=== PATIENT | male | born 1960 | race Caucasian/White ===

== ENCOUNTER 2020-11-09 02:36 | Inpatient (IN) | payer BC, SELFPAY ==
[~2020-11-09] VITALS: Ht 182.9 cm; Wt 98.9 kg
[2020-11-09 03:00] VITALS: BP_SYST 125
[2020-11-09] MEDS ORDERED: PIPERACILLIN/TAZO 3.375 GM in NS 50 ML IV ONE (03:15)
[2020-11-09] MEDS ORDERED: NACL 0.9% 1,000 ML IV ONE (03:15)
[2020-11-09] MEDS ORDERED: ACETAMINOPHEN 500 MG TABLET PO ONE (03:15)
[2020-11-09] MEDS ORDERED: VANCOMYCIN HCL 1,000 MG in NS 250 ML IV ONE ×2 (03:15→04:15)
[2020-11-09] MEDS ORDERED: DIPH-TET-PERTUS Vaccine 0.5 ML VIAL (ADACEL) I.M. ONE (03:15)
[2020-11-09] MEDS ORDERED: VANCOMYCIN HCL 1000 MG/VIAL IV ONE (03:19)
[2020-11-09] MEDS ORDERED: PIPERACILLIN/TAZOBACTAM 3.375 GM/VIAL (ZOSYN) IV ONE (03:22)
[2020-11-09 03:26] LABS: HEMATOCRIT 36.3 % (36-54); HEMOGLOBIN 12.7 g/dL (14.0-18.0); MEAN CORPUSCULAR HEMOGLOBIN 30 pg (27-31); MEAN CORPUSCULAR HGB CONC 35 % (32-36); MEAN CORPUSCULAR VOLUME 84 fL (79.0-98.0); PLATELET COUNT (AUTO) 283 K/uL (130-430); RED CELL DISTRIBUTION WIDTH 12.6 % (9.0-15.0); WHITE BLOOD COUNT (AUTO) 26.3 K/uL (4.8-10.8)
[2020-11-09 03:38] LABS: ANION GAP 10 (5-15); CALCIUM 8.3 mg/dL (8.4-11.0); CHLORIDE 88 mmol/L (98-107); CREATININE 1.25 mg/dL (0.55-1.30); GLUCOSE 370 mg/dL (70-99); POTASSIUM 3.7 mmol/L (3.5-5.1); SODIUM SERUM 124 mmol/L (136-145); UREA NITROGEN, BLOOD 14 mg/dL (8-21)
[2020-11-09 03:39] LABS: GFR AFRICAN AMERICAN 76 mL/min (>90)
[2020-11-09 03:44] LABS: ALANINE AMINOTRANSFERASE 14 U/L (12-78); ALBUMIN 2.6 g/dL (3.4-4.8); ASPARTATE AMINOTRANSFERASE 16 U/L (10-37); TOTAL BILIRUBIN 1.3 mg/dL (0.0-1.0)
[2020-11-09 03:49] LABS: ATYPICAL LYMPHOCYTES % 1 % (0-0); BAND % (MANUAL) 0 % (0-6); BASOPHILS % (MANUAL) 0 % (0-2); EOSINOPHILS % (MANUAL) 0 % (0-7); LYMPHOCYTES % (MANUAL) 3 % (20-46); MONOCYTES % (MANUAL) 6 % (0-11)
[2020-11-09 03:51] LABS: C-REACTIVE PROTEIN QUANT 37.6 mg/dL (0-0.5)
[2020-11-09 03:55] LABS: BILIRUBIN,URINE NEGATIVE (NEGATIVE); CLARITY/URINE CLEAR (CLEAR); COLOR,URINE YELLOW (YELLOW); GLUCOSE,URINE 3+ (NEGATIVE); KETONES,URINE 2+ (NEGATIVE); LEUKOCYTE ESTERASE ,URINE NEGATIVE (NEGATIVE); NITRITE, URINE NEGATIVE (NEGATIVE); PH,URINE 5.5 (5.0-8.0); PROTEIN URINE TRACE (NEGATIVE)
[2020-11-09 03:57] LABS: BLOOD, URINE TRACE (NEGATIVE)
[2020-11-09] MEDS ORDERED: INSULIN REGULAR, HUMAN 10 UNITS/0.1 ML INJ ONE (03:57)
[2020-11-09 03:58] LABS: BACTERIA,URINE FEW /HPF (None Seen); WBC,URINE 0-3 /HPF (0-3)
[2020-11-09] MEDS ORDERED: HYDROcodone/ACETAMIN 5-325 MG TAB (NORCO/ VICODIN) PO PRN (04:00)
[2020-11-09] MEDS ORDERED: INSULIN REGULAR, HUMAN 10 UNITS/0.1 ML INJ IVP ONE (04:00)
[2020-11-09 04:16] LABS: ACETONE, SERUM SMALL (NEGATIVE)
[2020-11-09 04:17] LABS: ERYTHROCYTE SEDIMENTATION RATE 86 MM/HR (0-15)
[2020-11-09] MEDS ORDERED: METF-509 PO (04:18)
[2020-11-09 04:43] VITALS: BP_SYST 118
[2020-11-09] MEDS ORDERED: PIPERACILLIN/TAZO 3.375/DEX-IS 50 ML IV SCH ×2 (06:00→09:00)
[2020-11-09] MEDS: INSULIN REGULAR, HUMAN 100 UNITS/ML, 10 ML VIAL (humuLIN R) SUBCUT PRN ×4 (06:36→21:53)
[2020-11-09] MEDS: 0.45% NACL 1,000 ML IV SCH (07:03)
[2020-11-09 08:00] VITALS: BP_SYST 121
[2020-11-09] MEDS: PIPERACILLIN/TAZOBACTAM 3.375 GM/ D5W 50 ML IV SCH ×4 (12:00→17:37)
[2020-11-09 13:14] VITALS: BP_SYST 119
[2020-11-09] MEDS: VANCOMYCIN HCL 1,000 MG in NS 250 ML IV SCH (15:26)
[2020-11-09] MEDS: metFORMIN HCL 500 MG TABLET PO SCH (17:37)
[2020-11-09 20:30] VITALS: BP_SYST 126
[2020-11-09] MEDS: ENOXAPARIN SODIUM 40 MG/0.4 ML SYRINGE SUBCUT SCH (21:52)
[2020-11-09] MEDS: ACETAMINOPHEN 325 MG TABLET PO PRN (22:06)
[2020-11-09] MEDS ORDERED: MORPHINE 2 MG/ML INJ. SYRINGE IVP ONE (23:15)
[2020-11-10] MEDS: PIPERACILLIN/TAZOBACTAM 3.375 GM/ D5W 50 ML IV SCH ×8 (00:30→21:14)
[2020-11-10 01:51] VITALS: BP_SYST 122
[2020-11-10] MEDS: VANCOMYCIN HCL 1,000 MG in NS 250 ML IV SCH ×2 (04:08→16:35)
[2020-11-10] MEDS: INSULIN REGULAR, HUMAN 100 UNITS/ML, 10 ML VIAL (humuLIN R) SUBCUT PRN ×3 (06:38→18:29)
[2020-11-10 07:36] LABS: BASOPHILS # (AUTO) 0.1 K/uL (0.0-0.2); BASOPHILS % (AUTO) 0.3 % (0.0-2.0); HEMATOCRIT 34.3 % (36-54); HEMOGLOBIN 11.7 g/dL (14.0-18.0); LYMPHOCYTES % (AUTO) 3.4 % (20.5-51.5); MEAN CORPUSCULAR HEMOGLOBIN 29 pg (27-31); MEAN CORPUSCULAR HGB CONC 34 % (32-36); MEAN CORPUSCULAR VOLUME 85 fL (79.0-98.0); MONOCYTES # (AUTO) 2.6 K/uL (0.0-1.0); MONOCYTES % (AUTO) 9.3 % (1.7-9.3); NEUTROPHILS # (AUTO) 24.8 K/uL (1.8-7.7); PLATELET COUNT (AUTO) 273 K/uL (130-430); RED BLOOD CELL COUNT(AUTO) 4.03 MIL/uL (4.2-6.2); WHITE BLOOD COUNT (AUTO) 28.5 K/uL (4.8-10.8)
[2020-11-10 07:56] LABS: CALCIUM 8.1 mg/dL (8.4-11.0); CREATININE 1.3 mg/dL (0.55-1.30); PHOSPHORUS 2.3 mg/dL (2.7-4.5); POTASSIUM 3.2 mmol/L (3.5-5.1)
[2020-11-10 08:00] VITALS: BP_SYST 96
[2020-11-10] MEDS: metFORMIN HCL 500 MG TABLET PO SCH ×2 (08:00→18:18)
[2020-11-10] MEDS: 0.45% NACL 1,000 ML IV SCH ×2 (09:39→21:15)
[2020-11-10 12:10] VITALS: BP_SYST 122
[2020-11-10] MEDS ORDERED: POTASSIUM CHLORIDE 20 MEQ TAB.PRT.SR PO ONE (16:00)
[2020-11-10 16:10] VITALS: BP_SYST 119
[2020-11-10] MEDS: MICAFUNGIN SODIUM 100 MG in NS 100 ML IV SCH (16:35)
[2020-11-10 20:00] VITALS: BP_SYST 105
[2020-11-10] MEDS: INSULIN GLARGINE 100 UNITS/ML 10 ML VIAL SUBCUT SCH (21:14)
[2020-11-10] MEDS: ENOXAPARIN SODIUM 40 MG/0.4 ML SYRINGE SUBCUT SCH (21:14)
[2020-11-11 00:10] VITALS: BP_SYST 97
[2020-11-11] MEDS: PIPERACILLIN/TAZOBACTAM 3.375 GM/ D5W 50 ML IV SCH ×4 (00:11→07:32)
[2020-11-11] MEDS: ACETAMINOPHEN 325 MG TABLET PO PRN (00:12)
[2020-11-11] MEDS: VANCOMYCIN HCL 1,000 MG in NS 250 ML IV SCH ×2 (04:03→17:53)
[2020-11-11 06:47] LABS: BASOPHILS # (AUTO) 0.1 K/uL (0.0-0.2); BASOPHILS % (AUTO) 0.3 % (0.0-2.0); EOSINOPHILS # (AUTO) 0.1 K/uL (0.0-0.4); EOSINOPHILS % (AUTO) 0.2 % (0.0-4.0); HEMATOCRIT 32.6 % (36-54); HEMOGLOBIN 11.2 g/dL (14.0-18.0); LYMPHOCYTES % (AUTO) 4.6 % (20.5-51.5); MEAN CORPUSCULAR HEMOGLOBIN 29 pg (27-31); MEAN CORPUSCULAR HGB CONC 34 % (32-36); MEAN CORPUSCULAR VOLUME 85 fL (79.0-98.0); MONOCYTES # (AUTO) 2.5 K/uL (0.0-1.0); MONOCYTES % (AUTO) 11.1 % (1.7-9.3); NEUTROPHILS # (AUTO) 18.6 K/uL (1.8-7.7); NEUTROPHILS % (AUTO) 83.8 % (40.0-70.0); PLATELET COUNT (AUTO) 257 K/uL (130-430); RED BLOOD CELL COUNT(AUTO) 3.83 MIL/uL (4.2-6.2); RED CELL DISTRIBUTION WIDTH 12.9 % (9.0-15.0); WHITE BLOOD COUNT (AUTO) 22.2 K/uL (4.8-10.8)
[2020-11-11 07:06] LABS: CALCIUM 7.6 mg/dL (8.4-11.0); POTASSIUM 3.5 mmol/L (3.5-5.1)
[2020-11-11 08:00] VITALS: BP_SYST 111
[2020-11-11] MEDS: metFORMIN HCL 500 MG TABLET PO SCH ×2 (09:01→17:54)
[2020-11-11 11:28] VITALS: BP_SYST 111
[2020-11-11] MEDS: 0.45% NACL 1,000 ML IV SCH (15:59)
[2020-11-11] MEDS: MICAFUNGIN SODIUM 100 MG in NS 100 ML IV SCH (15:59)
[2020-11-11 16:00] VITALS: BP_SYST 124
[2020-11-11 20:00] VITALS: BP_SYST 122
[2020-11-11] MEDS ORDERED: KCL 20 mEq in NS 1000 mL 1,000 ML IV ONE (20:30)
[2020-11-11] MEDS: MEGESTROL ACETATE 400 MG/10 ML UDC PO SCH (20:41)
[2020-11-11] MEDS: ENOXAPARIN SODIUM 40 MG/0.4 ML SYRINGE SUBCUT SCH (20:42)
[2020-11-11] MEDS: KCL 20 mEq in NS 1000 mL 1,000 ML IV SCH (20:42)
[2020-11-11] MEDS: INSULIN GLARGINE 100 UNITS/ML 10 ML VIAL SUBCUT SCH (20:42)
[2020-11-11] MEDS: CEFEPIME 0.5 GM in D5W 50 ML IV SCH (20:43)
[2020-11-11] MEDS: ONDANSETRON HCL 4 MG/2 ML VIAL IVP PRN (20:50)
[2020-11-12] VITALS: BP_SYST 117
[2020-11-12] MEDS: KCL 20 mEq in NS 1000 mL 1,000 ML IV SCH ×3 (04:15→23:42)
[2020-11-12] MEDS: VANCOMYCIN HCL 1,000 MG in NS 250 ML IV SCH (04:34)
[2020-11-12 07:58] LABS: BASOPHILS # (AUTO) 0.1 K/uL (0.0-0.2); BASOPHILS % (AUTO) 0.3 % (0.0-2.0); EOSINOPHILS # (AUTO) 0.1 K/uL (0.0-0.4); EOSINOPHILS % (AUTO) 0.5 % (0.0-4.0); HEMATOCRIT 33.6 % (36-54); HEMOGLOBIN 11.4 g/dL (14.0-18.0); LYMPHOCYTES # (AUTO) 1.2 K/uL (1.0-5.5); LYMPHOCYTES % (AUTO) 5.9 % (20.5-51.5); MEAN CORPUSCULAR HEMOGLOBIN 29 pg (27-31); MEAN CORPUSCULAR HGB CONC 34 % (32-36); MEAN CORPUSCULAR VOLUME 86 fL (79.0-98.0); MONOCYTES # (AUTO) 2.5 K/uL (0.0-1.0); NEUTROPHILS # (AUTO) 16.5 K/uL (1.8-7.7); NEUTROPHILS % (AUTO) 81.3 % (40.0-70.0); PLATELET COUNT (AUTO) 299 K/uL (130-430); RED CELL DISTRIBUTION WIDTH 13.6 % (9.0-15.0); WHITE BLOOD COUNT (AUTO) 20.3 K/uL (4.8-10.8)
[2020-11-12 08:00] VITALS: BP_SYST 119
[2020-11-12 08:14] LABS: CALCIUM 7.7 mg/dL (8.4-11.0); CREATININE 2.83 mg/dL (0.55-1.30); POTASSIUM 3.6 mmol/L (3.5-5.1)
[2020-11-12] MEDS: metFORMIN HCL 500 MG TABLET PO SCH ×2 (09:12→17:58)
[2020-11-12] MEDS: CEFEPIME 0.5 GM in D5W 50 ML IV SCH (09:12)
[2020-11-12] MEDS: MEGESTROL ACETATE 400 MG/10 ML UDC PO SCH ×2 (09:13→20:04)
[2020-11-12] MEDS: BALSAM PERU/CASTOR OIL 60 GM OINT...G. TP SCH (09:13)
[2020-11-12 12:00] VITALS: BP_SYST 123
[2020-11-12] MEDS: MICAFUNGIN SODIUM 100 MG in NS 100 ML IV SCH (16:01)
[2020-11-12 20:00] VITALS: BP_SYST 126
[2020-11-12] MEDS: ENOXAPARIN SODIUM 40 MG/0.4 ML SYRINGE SUBCUT SCH (20:04)
[2020-11-12] MEDS: INSULIN GLARGINE 100 UNITS/ML 10 ML VIAL SUBCUT SCH (21:08)
[2020-11-12] MEDS ORDERED: CEFTAROLINE FOSAMIL ACETATE 400 MG VIAL IV ONE (21:31)
[2020-11-12] MEDS: CEFTAROLINE FOSAMIL ACETATE 400 MG in NS 250 ML IV SCH (21:41)
[2020-11-13] VITALS: BP_SYST 138
[2020-11-13] MEDS: metFORMIN HCL 500 MG TABLET PO SCH ×2 (09:14→17:11)
[2020-11-13] MEDS: BALSAM PERU/CASTOR OIL 60 GM OINT...G. TP SCH (09:15)
[2020-11-13] MEDS: MEGESTROL ACETATE 400 MG/10 ML UDC PO SCH ×2 (09:15→22:20)
[2020-11-13] MEDS: CEFTAROLINE FOSAMIL ACETATE 400 MG in NS 250 ML IV SCH ×2 (09:19→22:22)
[2020-11-13 09:20] VITALS: BP_SYST 130
[2020-11-13] MEDS: KCL 20 mEq in NS 1000 mL 1,000 ML IV SCH ×2 (10:20→22:18)
[2020-11-13 12:14] VITALS: BP_SYST 133
[2020-11-13 16:10] VITALS: BP_SYST 133
[2020-11-13] MEDS: MICAFUNGIN SODIUM 100 MG in NS 100 ML IV SCH (17:11)
[2020-11-13] MEDS: INSULIN REGULAR, HUMAN 100 UNITS/ML, 10 ML VIAL (humuLIN R) SUBCUT PRN (18:08)
[2020-11-13 20:05] VITALS: BP_SYST 123
[2020-11-13] MEDS: INSULIN GLARGINE 100 UNITS/ML 10 ML VIAL SUBCUT SCH (22:17)
[2020-11-13] MEDS: ENOXAPARIN SODIUM 40 MG/0.4 ML SYRINGE SUBCUT SCH (22:18)
[2020-11-14 04:00] VITALS: BP_SYST 139
[2020-11-14] MEDS: KCL 20 mEq in NS 1000 mL 1,000 ML IV SCH ×2 (06:08→16:53)
[2020-11-14 08:00] VITALS: BP_SYST 144
[2020-11-14 08:38] LABS: BASOPHILS # (AUTO) 0.1 K/uL (0.0-0.2); BASOPHILS % (AUTO) 0.3 % (0.0-2.0); EOSINOPHILS # (AUTO) 0.2 K/uL (0.0-0.4); EOSINOPHILS % (AUTO) 0.9 % (0.0-4.0); HEMATOCRIT 35.8 % (36-54); LYMPHOCYTES # (AUTO) 1.7 K/uL (1.0-5.5); LYMPHOCYTES % (AUTO) 7.7 % (20.5-51.5); MEAN CORPUSCULAR HEMOGLOBIN 29 pg (27-31); MEAN CORPUSCULAR HGB CONC 34 % (32-36); MEAN CORPUSCULAR VOLUME 87 fL (79.0-98.0); MONOCYTES # (AUTO) 2.8 K/uL (0.0-1.0); NEUTROPHILS # (AUTO) 16.7 K/uL (1.8-7.7); NEUTROPHILS % (AUTO) 78.1 % (40.0-70.0); PLATELET COUNT (AUTO) 428 K/uL (130-430); RED BLOOD CELL COUNT(AUTO) 4.11 MIL/uL (4.2-6.2); RED CELL DISTRIBUTION WIDTH 13.8 % (9.0-15.0); WHITE BLOOD COUNT (AUTO) 21.4 K/uL (4.8-10.8)
[2020-11-14] MEDS: CEFTAROLINE FOSAMIL ACETATE 400 MG in NS 250 ML IV SCH ×2 (09:03→20:22)
[2020-11-14] MEDS: MEGESTROL ACETATE 400 MG/10 ML UDC PO SCH ×2 (09:03→20:50)
[2020-11-14] MEDS: BALSAM PERU/CASTOR OIL 60 GM OINT...G. TP SCH (09:03)
[2020-11-14] MEDS: metFORMIN HCL 500 MG TABLET PO SCH ×2 (09:03→17:32)
[2020-11-14] MEDS: ONDANSETRON HCL 4 MG/2 ML VIAL IVP PRN (10:38)
[2020-11-14] MEDS: INSULIN REGULAR, HUMAN 100 UNITS/ML, 10 ML VIAL (humuLIN R) SUBCUT PRN (11:56)
[2020-11-14 16:02] VITALS: BP_SYST 123
[2020-11-14] MEDS: MICAFUNGIN SODIUM 100 MG in NS 100 ML IV SCH (16:53)
[2020-11-14] MEDS ORDERED: *CUBICIN 6 MG/KG Q48H/PHARMACY XX PRN (18:15)
[2020-11-14 20:00] VITALS: BP_SYST 136
[2020-11-14] MEDS ORDERED: NS IV SCH (20:00)
[2020-11-14] MEDS ORDERED: DAPTOMYCIN IV SCH (20:00)
[2020-11-14] MEDS: INSULIN GLARGINE 100 UNITS/ML 10 ML VIAL SUBCUT SCH (20:48)
[2020-11-14] MEDS: ENOXAPARIN SODIUM 40 MG/0.4 ML SYRINGE SUBCUT SCH (20:49)
[2020-11-15] VITALS: BP_SYST 132
[2020-11-15 07:20] LABS: INR 1.2 (0.80-1.20); PROTHROMBIN TIME 11.9 SECS (9.5-12.5)
[2020-11-15 08:57] VITALS: BP_SYST 151
[2020-11-15] MEDS: CEFTAROLINE FOSAMIL ACETATE 400 MG in NS 250 ML IV SCH (09:00)
[2020-11-15] MEDS: ONDANSETRON HCL 4 MG/2 ML VIAL IVP PRN (09:00)
[2020-11-15] MEDS: KCL 20 mEq in NS 1000 mL 1,000 ML IV SCH ×3 (09:00→23:27)
[2020-11-15] MEDS: metFORMIN HCL 500 MG TABLET PO SCH ×2 (09:00→18:06)
[2020-11-15] MEDS: BALSAM PERU/CASTOR OIL 60 GM OINT...G. TP SCH (09:01)
[2020-11-15] MEDS: MEGESTROL ACETATE 400 MG/10 ML UDC PO SCH ×2 (09:01→21:00)
[2020-11-15 12:50] VITALS: BP_SYST 144
[2020-11-15] MEDS: AMPICILLIN SODIUM 1 GM in NS 50 ML IV SCH ×3 (12:53→23:27)
[2020-11-15 16:58] VITALS: BP_SYST 152
[2020-11-15 20:00] VITALS: BP_SYST 157
[2020-11-15] MEDS: INSULIN GLARGINE 100 UNITS/ML 10 ML VIAL SUBCUT SCH (21:20)
[2020-11-15] MEDS: ENOXAPARIN SODIUM 40 MG/0.4 ML SYRINGE SUBCUT SCH (21:21)
[2020-11-16 00:39] VITALS: BP_SYST 152
[2020-11-16] MEDS: AMPICILLIN SODIUM 1 GM in NS 50 ML IV SCH ×4 (06:23→23:26)
[2020-11-16 08:30] VITALS: BP_SYST 160
[2020-11-16] MEDS: metFORMIN HCL 500 MG TABLET PO SCH ×2 (10:11→17:08)
[2020-11-16] MEDS: BALSAM PERU/CASTOR OIL 60 GM OINT...G. TP SCH (10:12)
[2020-11-16] MEDS: KCL 20 mEq in NS 1000 mL 1,000 ML IV SCH (10:12)
[2020-11-16] MEDS: MEGESTROL ACETATE 400 MG/10 ML UDC PO SCH ×2 (10:12→21:00)
[2020-11-16 12:29] VITALS: BP_SYST 151
[2020-11-16 16:00] VITALS: BP_SYST 153
[2020-11-16] MEDS ORDERED: ONDANSETRON HCL 4 MG/2 ML VIAL IVP PRN (16:15)
[2020-11-16] MEDS ORDERED: HYDROcodone/ACETAMIN 5-325 MG TAB (NORCO/ VICODIN) PO PRN (16:45)
[2020-11-16] MEDS ORDERED: ACETAMINOPHEN 325 MG TABLET PO PRN ×2 (16:45→17:00)
[2020-11-16] MEDS ORDERED: HYDROmorphone 1 MG INJ. 1 MG/ML AMPUL IVP PRN (16:45)
[2020-11-16] MEDS ORDERED: NALOXONE HCL 0.4 MG/ML AMP (NARCAN) IVP PRN (16:45)
[2020-11-16] MEDS: NACL 0.9% 1,000 ML IV SCH (17:08)
[2020-11-16] MEDS: CEFAZOLIN 2 GM IVPB PREMIX 50 ML IV SCH (17:56)
[2020-11-16 20:00] VITALS: BP_SYST 156
[2020-11-16] MEDS: ENOXAPARIN SODIUM 40 MG/0.4 ML SYRINGE SUBCUT SCH (20:17)
[2020-11-16] MEDS: INSULIN GLARGINE 100 UNITS/ML 10 ML VIAL SUBCUT SCH (20:36)
[2020-11-17] VITALS: BP_SYST 152
[2020-11-17] MEDS: CEFAZOLIN 2 GM IVPB PREMIX 50 ML IV SCH (01:00)
[2020-11-17] MEDS: NACL 0.9% 1,000 ML IV SCH ×3 (06:14→23:00)
[2020-11-17] MEDS: AMPICILLIN SODIUM 1 GM in NS 50 ML IV SCH ×3 (06:14→17:42)
[2020-11-17 06:58] LABS: BASOPHILS # (AUTO) 0.1 K/uL (0.0-0.2); BASOPHILS % (AUTO) 0.3 % (0.0-2.0); EOSINOPHILS % (AUTO) 0.1 % (0.0-4.0); HEMATOCRIT 34.3 % (36-54); HEMOGLOBIN 11.5 g/dL (14.0-18.0); LYMPHOCYTES # (AUTO) 1.4 K/uL (1.0-5.5); LYMPHOCYTES % (AUTO) 7.1 % (20.5-51.5); MEAN CORPUSCULAR HEMOGLOBIN 29 pg (27-31); MEAN CORPUSCULAR HGB CONC 34 % (32-36); MEAN CORPUSCULAR VOLUME 87 fL (79.0-98.0); MONOCYTES # (AUTO) 1.7 K/uL (0.0-1.0); MONOCYTES % (AUTO) 8.6 % (1.7-9.3); NEUTROPHILS # (AUTO) 16.3 K/uL (1.8-7.7); NEUTROPHILS % (AUTO) 83.9 % (40.0-70.0); PLATELET COUNT (AUTO) 494 K/uL (130-430); RED BLOOD CELL COUNT(AUTO) 3.95 MIL/uL (4.2-6.2); RED CELL DISTRIBUTION WIDTH 14.8 % (9.0-15.0); WHITE BLOOD COUNT (AUTO) 19.4 K/uL (4.8-10.8)
[2020-11-17 07:47] LABS: ALBUMIN 1.8 g/dL (3.4-4.8); CALCIUM 7.5 mg/dL (8.4-11.0); CREATININE 3.23 mg/dL (0.55-1.30); POTASSIUM 5.4 mmol/L (3.5-5.1); TOTAL BILIRUBIN 0.3 mg/dL (0.0-1.0)
[2020-11-17 08:48] VITALS: BP_SYST 154
[2020-11-17] MEDS: ONDANSETRON HCL 4 MG/2 ML VIAL IVP PRN (08:48)
[2020-11-17] MEDS: metFORMIN HCL 500 MG TABLET PO SCH ×2 (08:48→17:42)
[2020-11-17] MEDS: MEGESTROL ACETATE 400 MG/10 ML UDC PO SCH ×2 (08:48→21:00)
[2020-11-17] MEDS: BALSAM PERU/CASTOR OIL 60 GM OINT...G. TP SCH (08:53)
[2020-11-17 12:16] VITALS: BP_SYST 131; BP_SYST 152
[2020-11-17 16:05] VITALS: BP_SYST 154
[2020-11-17] MEDS ORDERED: cloNIDine HCL 0.1 MG TABLET PO PRN (18:30)
[2020-11-17] MEDS: ENOXAPARIN SODIUM 40 MG/0.4 ML SYRINGE SUBCUT SCH (22:01)
[2020-11-17] MEDS: INSULIN GLARGINE 100 UNITS/ML 10 ML VIAL SUBCUT SCH (22:05)
[2020-11-17 23:00] VITALS: BP_SYST 162
[2020-11-17] MEDS ORDERED: cloNIDine HCL 0.1 MG TABLET ONE (23:04)
[2020-11-18] MEDS: AMPICILLIN SODIUM 1 GM in NS 50 ML IV SCH ×5 (05:48→17:58)
[2020-11-18 07:02] LABS: BASOPHILS % (AUTO) 0.1 % (0.0-2.0); EOSINOPHILS # (AUTO) 0.1 K/uL (0.0-0.4); EOSINOPHILS % (AUTO) 0.6 % (0.0-4.0); HEMATOCRIT 35.9 % (36-54); HEMOGLOBIN 11.4 g/dL (14.0-18.0); LYMPHOCYTES # (AUTO) 1.6 K/uL (1.0-5.5); LYMPHOCYTES % (AUTO) 9.7 % (20.5-51.5); MEAN CORPUSCULAR HEMOGLOBIN 28 pg (27-31); MEAN CORPUSCULAR HGB CONC 32 % (32-36); MEAN CORPUSCULAR VOLUME 88 fL (79.0-98.0); MONOCYTES # (AUTO) 1.5 K/uL (0.0-1.0); MONOCYTES % (AUTO) 9.3 % (1.7-9.3); NEUTROPHILS # (AUTO) 13.3 K/uL (1.8-7.7); NEUTROPHILS % (AUTO) 80.3 % (40.0-70.0); PLATELET COUNT (AUTO) 488 K/uL (130-430); RED CELL DISTRIBUTION WIDTH 14.4 % (9.0-15.0); WHITE BLOOD COUNT (AUTO) 16.5 K/uL (4.8-10.8)
[2020-11-18 07:17] LABS: CALCIUM 7.7 mg/dL (8.4-11.0); CREATININE 3.19 mg/dL (0.55-1.30); POTASSIUM 5.3 mmol/L (3.5-5.1)
[2020-11-18] MEDS ORDERED: SODIUM POLYSTYRENE SULFONATE 15 GM/60 ML UDBTL PO ONE (08:30)
[2020-11-18 08:43] VITALS: BP_SYST 159
[2020-11-18] MEDS: MEGESTROL ACETATE 400 MG/10 ML UDC PO SCH ×2 (08:44→21:00)
[2020-11-18] MEDS: BALSAM PERU/CASTOR OIL 60 GM OINT...G. TP SCH (08:45)
[2020-11-18] MEDS: ONDANSETRON HCL 4 MG/2 ML VIAL IVP PRN (08:50)
[2020-11-18] MEDS: NACL 0.9% 1,000 ML IV SCH ×2 (08:51→17:58)
[2020-11-18 12:06] VITALS: BP_SYST 144
[2020-11-18 16:18] VITALS: BP_SYST 106
[2020-11-18 19:12] LABS: CLARITY/URINE CLEAR (CLEAR); COLOR,URINE YELLOW (YELLOW); PH,URINE 5.5 (5.0-8.0); PROTEIN URINE NEGATIVE (NEGATIVE)
[2020-11-18 19:13] LABS: BILIRUBIN,URINE NEGATIVE (NEGATIVE); BLOOD, URINE TRACE (NEGATIVE); GLUCOSE,URINE TRACE (NEGATIVE); KETONES,URINE NEGATIVE (NEGATIVE); LEUKOCYTE ESTERASE ,URINE NEGATIVE (NEGATIVE); NITRITE, URINE NEGATIVE (NEGATIVE); UROBILINOGEN,URINE 0.2 (0.2-1.0)
[2020-11-18 19:17] LABS: BACTERIA,URINE FEW /HPF (None Seen); RBC,URINE 0-3 /HPF (0-3); WBC,URINE NONE SEEN /HPF (0-3)
[2020-11-18 19:18] LABS: TRIPLE PHOSPHATE CRYSTAL,UR 0-10 /HPF (None Seen)
[2020-11-18 20:00] VITALS: BP_SYST 148
[2020-11-18] MEDS: ENOXAPARIN SODIUM 40 MG/0.4 ML SYRINGE SUBCUT SCH (21:37)
[2020-11-18] MEDS: INSULIN GLARGINE 100 UNITS/ML 10 ML VIAL SUBCUT SCH (21:45)
[2020-11-18] MEDS: INSULIN REGULAR, HUMAN 100 UNITS/ML, 10 ML VIAL (humuLIN R) SUBCUT PRN (21:53)
[2020-11-19] MEDS: AMPICILLIN SODIUM 1 GM in NS 50 ML IV SCH ×6 (06:07→23:14)
[2020-11-19] MEDS: NACL 0.9% 1,000 ML IV SCH ×3 (06:07→22:39)
[2020-11-19 06:51] LABS: BASOPHILS % (AUTO) 0.1 % (0.0-2.0); EOSINOPHILS # (AUTO) 0.1 K/uL (0.0-0.4); EOSINOPHILS % (AUTO) 0.5 % (0.0-4.0); HEMATOCRIT 35.8 % (36-54); HEMOGLOBIN 11.5 g/dL (14.0-18.0); LYMPHOCYTES # (AUTO) 0.8 K/uL (1.0-5.5); LYMPHOCYTES % (AUTO) 3.4 % (20.5-51.5); MEAN CORPUSCULAR HEMOGLOBIN 28 pg (27-31); MEAN CORPUSCULAR HGB CONC 32 % (32-36); MEAN CORPUSCULAR VOLUME 87 fL (79.0-98.0); MONOCYTES # (AUTO) 1.3 K/uL (0.0-1.0); MONOCYTES % (AUTO) 6.2 % (1.7-9.3); NEUTROPHILS # (AUTO) 19.7 K/uL (1.8-7.7); NEUTROPHILS % (AUTO) 89.8 % (40.0-70.0); PLATELET COUNT (AUTO) 526 K/uL (130-430); RED CELL DISTRIBUTION WIDTH 14.3 % (9.0-15.0); WHITE BLOOD COUNT (AUTO) 21.9 K/uL (4.8-10.8)
[2020-11-19 07:17] LABS: ALBUMIN 1.9 g/dL (3.4-4.8); CALCIUM 7.6 mg/dL (8.4-11.0); CREATININE 3.13 mg/dL (0.55-1.30); POTASSIUM 4.2 mmol/L (3.5-5.1); TOTAL BILIRUBIN 0.5 mg/dL (0.0-1.0)
[2020-11-19 08:00] VITALS: BP_SYST 149
[2020-11-19] MEDS: MEGESTROL ACETATE 400 MG/10 ML UDC PO SCH ×2 (09:00→20:40)
[2020-11-19] MEDS: BALSAM PERU/CASTOR OIL 60 GM OINT...G. TP SCH (09:35)
[2020-11-19 12:00] VITALS: BP_SYST 138
[2020-11-19] MEDS: INSULIN REGULAR, HUMAN 100 UNITS/ML, 10 ML VIAL (humuLIN R) SUBCUT PRN (12:43)
[2020-11-19 15:54] VITALS: BP_SYST 123
[2020-11-19 16:15] VITALS: BP_SYST 147
[2020-11-19 20:00] VITALS: BP_SYST 154
[2020-11-19] MEDS: ENOXAPARIN SODIUM 40 MG/0.4 ML SYRINGE SUBCUT SCH (20:34)
[2020-11-19] MEDS: INSULIN GLARGINE 100 UNITS/ML 10 ML VIAL SUBCUT SCH (20:35)
[2020-11-20] VITALS: BP_SYST 155
[2020-11-20 00:25] LABS: BILIRUBIN,URINE NEGATIVE (NEGATIVE); CLARITY/URINE CLEAR (CLEAR); COLOR,URINE YELLOW (YELLOW); GLUCOSE,URINE NEGATIVE (NEGATIVE); KETONES,URINE NEGATIVE (NEGATIVE); LEUKOCYTE ESTERASE ,URINE NEGATIVE (NEGATIVE); NITRITE, URINE NEGATIVE (NEGATIVE); PROTEIN URINE NEGATIVE (NEGATIVE); UROBILINOGEN,URINE 0.2 (0.2-1.0)
[2020-11-20 00:36] LABS: BLOOD, URINE TRACE (NEGATIVE)
[2020-11-20 01:12] LABS: BACTERIA,URINE FEW /HPF (None Seen); WBC,URINE 0-3 /HPF (0-3)
[2020-11-20 01:16] LABS: URIC ACID CRYSTALS,URINE 0-10 /HPF (None Seen)
[2020-11-20 01:24] LABS: EOSINOPHIL,URINE RARE
[2020-11-20 06:21] LABS: BASOPHILS % (AUTO) 0.1 % (0.0-2.0); EOSINOPHILS # (AUTO) 0.1 K/uL (0.0-0.4); EOSINOPHILS % (AUTO) 0.2 % (0.0-4.0); HEMATOCRIT 33.3 % (36-54); HEMOGLOBIN 10.7 g/dL (14.0-18.0); LYMPHOCYTES # (AUTO) 0.6 K/uL (1.0-5.5); LYMPHOCYTES % (AUTO) 2.1 % (20.5-51.5); MEAN CORPUSCULAR HEMOGLOBIN 28 pg (27-31); MEAN CORPUSCULAR HGB CONC 32 % (32-36); MEAN CORPUSCULAR VOLUME 87 fL (79.0-98.0); MONOCYTES # (AUTO) 1.7 K/uL (0.0-1.0); MONOCYTES % (AUTO) 5.8 % (1.7-9.3); NEUTROPHILS # (AUTO) 27.4 K/uL (1.8-7.7); PLATELET COUNT (AUTO) 431 K/uL (130-430); RED BLOOD CELL COUNT(AUTO) 3.81 MIL/uL (4.2-6.2); RED CELL DISTRIBUTION WIDTH 14.7 % (9.0-15.0); WHITE BLOOD COUNT (AUTO) 29.8 K/uL (4.8-10.8)
[2020-11-20] MEDS: AMPICILLIN SODIUM 1 GM in NS 50 ML IV SCH ×3 (06:27→18:12)
[2020-11-20] MEDS: INSULIN REGULAR, HUMAN 100 UNITS/ML, 10 ML VIAL (humuLIN R) SUBCUT PRN ×4 (06:28→22:31)
[2020-11-20 06:56] LABS: ALBUMIN 1.8 g/dL (3.4-4.8); CALCIUM 7.5 mg/dL (8.4-11.0); CREATININE 2.98 mg/dL (0.55-1.30); POTASSIUM 4.5 mmol/L (3.5-5.1); TOTAL BILIRUBIN 0.4 mg/dL (0.0-1.0)
[2020-11-20] MEDS ORDERED: SACCHAROMYCES BOULARDII 250 MG CAPSULE (FLORASTOR) PO SCH (09:00)
[2020-11-20] MEDS: MEGESTROL ACETATE 400 MG/10 ML UDC PO SCH ×2 (09:00→21:00)
[2020-11-20 09:02] LABS: NEUTROPHILS % (AUTO) 91.8 % (40.0-70.0)
[2020-11-20] MEDS: BALSAM PERU/CASTOR OIL 60 GM OINT...G. TP SCH (09:59)
[2020-11-20] MEDS: NACL 0.9% 1,000 ML IV SCH ×2 (10:30→20:45)
[2020-11-20] MEDS ORDERED: LACTOBACILLUS RHAMNOSUS GG 1 CAP CAPSULE PO ONE (12:00)
[2020-11-20 12:35] VITALS: BP_SYST 151
[2020-11-20] MEDS: VANCOMYCIN HCL ORAL SOLUTION 250 MG/5 ML, 80 ML PO SCH ×3 (12:39→22:35)
[2020-11-20 13:37] VITALS: BP_SYST 149
[2020-11-20 16:44] VITALS: BP_SYST 148
[2020-11-20 20:00] VITALS: BP_SYST 156
[2020-11-20] MEDS: LACTOBACILLUS RHAMNOSUS GG 1 CAP CAPSULE PO SCH (22:10)
[2020-11-20] MEDS: ENOXAPARIN SODIUM 40 MG/0.4 ML SYRINGE SUBCUT SCH (22:16)
[2020-11-20] MEDS: INSULIN GLARGINE 100 UNITS/ML 10 ML VIAL SUBCUT SCH (22:29)
[2020-11-21] VITALS: BP_SYST 146
[2020-11-21] MEDS: AMPICILLIN SODIUM 1 GM in NS 50 ML IV SCH ×4 (00:59→18:00)
[2020-11-21] MEDS: NACL 0.9% 1,000 ML IV SCH ×2 (06:15→16:45)
[2020-11-21] MEDS: INSULIN REGULAR, HUMAN 100 UNITS/ML, 10 ML VIAL (humuLIN R) SUBCUT PRN ×2 (06:17→12:43)
[2020-11-21 07:09] LABS: BASOPHILS % (AUTO) 0.1 % (0.0-2.0); EOSINOPHILS # (AUTO) 0.2 K/uL (0.0-0.4); EOSINOPHILS % (AUTO) 1.2 % (0.0-4.0); HEMATOCRIT 32.1 % (36-54); HEMOGLOBIN 10.6 g/dL (14.0-18.0); LYMPHOCYTES # (AUTO) 1.7 K/uL (1.0-5.5); LYMPHOCYTES % (AUTO) 9.3 % (20.5-51.5); MEAN CORPUSCULAR HEMOGLOBIN 29 pg (27-31); MEAN CORPUSCULAR HGB CONC 33 % (32-36); MEAN CORPUSCULAR VOLUME 87 fL (79.0-98.0); MONOCYTES # (AUTO) 1.4 K/uL (0.0-1.0); NEUTROPHILS # (AUTO) 14.7 K/uL (1.8-7.7); NEUTROPHILS % (AUTO) 81.4 % (40.0-70.0); PLATELET COUNT (AUTO) 409 K/uL (130-430); RED CELL DISTRIBUTION WIDTH 14.6 % (9.0-15.0); WHITE BLOOD COUNT (AUTO) 18.1 K/uL (4.8-10.8)
[2020-11-21 07:14] LABS: ALBUMIN 1.7 g/dL (3.4-4.8); CALCIUM 7.7 mg/dL (8.4-11.0); CREATININE 2.84 mg/dL (0.55-1.30); POTASSIUM 4.3 mmol/L (3.5-5.1); TOTAL BILIRUBIN 0.3 mg/dL (0.0-1.0)
[2020-11-21 07:50] VITALS: BP_SYST 150
[2020-11-21] MEDS: MEGESTROL ACETATE 400 MG/10 ML UDC PO SCH (09:57)
[2020-11-21] MEDS: LACTOBACILLUS RHAMNOSUS GG 1 CAP CAPSULE PO SCH (09:58)
[2020-11-21] MEDS: VANCOMYCIN HCL ORAL SOLUTION 250 MG/5 ML, 80 ML PO SCH ×3 (09:58→17:43)
[2020-11-21] MEDS: BALSAM PERU/CASTOR OIL 60 GM OINT...G. TP SCH (09:59)
[2020-11-21] MEDS ORDERED: AMOX500C2 PO (11:14)
[2020-11-21] MEDS ORDERED: VANC250C11 PO (11:15)
[2020-11-21] MEDS ORDERED: SACC250C3 PO (11:16)
[2020-11-21 12:00] VITALS: BP_SYST 113
[2020-11-21 14:23] VITALS: BP_SYST 150
[2020-11-21 16:40] VITALS: BP_SYST 120
== END 2020-11-21 19:30 | disposition home health service (06) | DRG 573 ==
LOC: SED 02:36 → SMU 03:51
PROVIDERS: ADMIT Family Medicine; ATTEND Family Medicine
PROC: 0HRMXK3 Replacement of Right Foot Skin with Nonautologous Tissue Substitute, Full Thickness, External Approach (ICD-10-PCS; 2020-11-16)
PROC: 0JBQ0ZZ Excision of Right Foot Subcutaneous Tissue and Fascia, Open Approach (ICD-10-PCS; 2020-11-16)
PROC: 0Y6M0Z9 Detachment at Right Foot, Partial 1st Ray, Open Approach (ICD-10-PCS; principal; 2020-11-16 14:00)
DX: L03.115 Cellulitis of right lower limb (principal); M72.6 Necrotizing fasciitis; I96 Gangrene, not elsewhere classified; E44.0 Moderate protein-calorie malnutrition; E87.1 Hypo-osmolality and hyponatremia; N17.9 Acute kidney failure, unspecified; E87.2 Acidosis; F43.20 Adjustment disorder, unspecified; G47.00 Insomnia, unspecified; E11.42 Type 2 diabetes mellitus with diabetic polyneuropathy; F41.9 Anxiety disorder, unspecified; E11.65 Type 2 diabetes mellitus with hyperglycemia; Z20.822 Contact with and (suspected) exposure to COVID-19; F32.9 Major depressive disorder, single episode, unspecified; I10 Essential (primary) hypertension; J45.909 Unspecified asthma, uncomplicated; Z91.14 Patient's other noncompliance with medication regimen; Z68.29 Body mass index [BMI] 29.0-29.9, adult; Z88.1 Allergy status to other antibiotic agents
CPT/HCPCS: 36415; 71045; 73721; 76700-TC; 80048; 80053; 80202-TC; 81000-TC; 82009-TC; 82962; 83036; 83605; 83735-TC; 84100-TC; 85007; 85025; 85027; 85610-TC; 85651-TC; 85730-TC; 86140; 87040-TC; 87070-TC; 87075-TC; 87081; 87186-TC; 87230-TC; 88305; 88311; 90715; 93005; 93922; 93971; 96365; 96366; 96367; 96375; 97110-GP; 97530-GP; J0290; J0690; J0692; J0712; J0878; J1650; J1815; J2248; J2405; J2543; J3370; J3480; J7050; J7060

== ENCOUNTER 2020-12-01 17:52 | Inpatient (IN) | payer BC, SELFPAY ==
[~2020-12-01] VITALS: Ht 182.9 cm; Wt 99.8 kg
[~2020-12-01 17:52] MED LIST: AMOX500C2 PO; BUPIVACAINE /PF 0.25% 30 ML VIAL INJ ONE; CEFAZOLIN 2 GM IVPB PREMIX 50 ML IV ONE; DEXAMETHASONE SOD PHOSPHATE 4 MG/ML VIAL IVP ONE; KETOROLAC TROMETHAMINE 30 MG VIAL IVP ONE; LIDOCAINE 1% 10 MG/ML, 20 ML MDV IM ONE; LIDOCAINE 2GM/500 ML D5W BAG IV ONE; LR 1,000 ML IV.SOLN IV ONE; METOCLOPRAMIDE HCL 10 MG/2 ML VIAL IVP ONE; MIDAZOLAM HCL 5 MG/5 ML VIAL IVP ONE; NS 1000 ML IV.SOLN IV ONE; NS IRRIG SOLN 1000 ML IR ONE; ONDANSETRON HCL 4 MG/2 ML VIAL IVP ONE; PROPOFOL 200MG/ 20ML VIAL (DIPRIVAN) IV ONE; SACC250C3 PO; SEVOFLURANE 15 MIN GAS INH ONE; VANC250C11 PO; fentaNYL CITRATE 250 MCG/5 ML AMP IV ONE; fentaNYL CITRATE/PF 100 MCG/2 ML AMP IVP ONE
[2020-12-01 18:02] VITALS: BP_SYST 162
[2020-12-01] MEDS ORDERED: NAFCILLIN SODIUM 1 GM in NS 50 ML IV SCH (18:15)
[2020-12-01 18:40] LABS: BASOPHILS % (AUTO) 0.4 % (0.0-2.0); EOSINOPHILS # (AUTO) 0.3 K/uL (0.0-0.4); EOSINOPHILS % (AUTO) 3.1 % (0.0-4.0); HEMATOCRIT 34.2 % (36-54); HEMOGLOBIN 11.3 g/dL (14.0-18.0); LYMPHOCYTES # (AUTO) 1.7 K/uL (1.0-5.5); LYMPHOCYTES % (AUTO) 15.7 % (20.5-51.5); MEAN CORPUSCULAR HEMOGLOBIN 29 pg (27-31); MEAN CORPUSCULAR HGB CONC 33 % (32-36); MEAN CORPUSCULAR VOLUME 86 fL (79.0-98.0); MONOCYTES # (AUTO) 0.9 K/uL (0.0-1.0); MONOCYTES % (AUTO) 8.6 % (1.7-9.3); NEUTROPHILS # (AUTO) 7.8 K/uL (1.8-7.7); NEUTROPHILS % (AUTO) 72.2 % (40.0-70.0); PLATELET COUNT (AUTO) 250 K/uL (130-430); RED BLOOD CELL COUNT(AUTO) 3.96 MIL/uL (4.2-6.2); RED CELL DISTRIBUTION WIDTH 14.1 % (9.0-15.0); WHITE BLOOD COUNT (AUTO) 10.9 K/uL (4.8-10.8)
[2020-12-01 18:47] LABS: CALCIUM 8.7 mg/dL (8.4-11.0); CREATININE 2.54 mg/dL (0.55-1.30); POTASSIUM 5.1 mmol/L (3.5-5.1)
[2020-12-01 18:50] LABS: INR 1.1 (0.80-1.20); PROTHROMBIN TIME 11.5 SECS (9.5-12.5)
[2020-12-01 18:53] LABS: ALBUMIN 2.8 g/dL (3.4-4.8); TOTAL BILIRUBIN 0.3 mg/dL (0.0-1.0)
[2020-12-01] MEDS ORDERED: ACETAMINOPHEN 325 MG TABLET PO PRN (21:30)
[2020-12-02 00:06] VITALS: BP_SYST 143
[2020-12-02] MEDS ORDERED: AMPICILLIN SODIUM/SULBACTAM NA 1.5 GM VIAL ONE (00:07)
[2020-12-02] MEDS: AMPICILLIN SODIUM/SULBACTAM NA 1.5 GM in NS 50 ML IV SCH ×5 (00:44→23:28)
[2020-12-02 00:55] VITALS: BP_SYST 151
[2020-12-02] MEDS: INSULIN REGULAR, HUMAN 100 UNITS/ML, 10 ML VIAL (humuLIN R) SUBCUT PRN ×3 (06:34→20:43)
[2020-12-02 06:51] LABS: BASOPHILS % (AUTO) 0.4 % (0.0-2.0); EOSINOPHILS # (AUTO) 0.4 K/uL (0.0-0.4); EOSINOPHILS % (AUTO) 4.6 % (0.0-4.0); HEMATOCRIT 33.1 % (36-54); LYMPHOCYTES # (AUTO) 1.5 K/uL (1.0-5.5); LYMPHOCYTES % (AUTO) 14.8 % (20.5-51.5); MEAN CORPUSCULAR HEMOGLOBIN 29 pg (27-31); MEAN CORPUSCULAR HGB CONC 33 % (32-36); MEAN CORPUSCULAR VOLUME 85 fL (79.0-98.0); MONOCYTES # (AUTO) 0.8 K/uL (0.0-1.0); MONOCYTES % (AUTO) 8.2 % (1.7-9.3); NEUTROPHILS # (AUTO) 7.1 K/uL (1.8-7.7); PLATELET COUNT (AUTO) 249 K/uL (130-430); RED BLOOD CELL COUNT(AUTO) 3.87 MIL/uL (4.2-6.2); RED CELL DISTRIBUTION WIDTH 13.7 % (9.0-15.0); WHITE BLOOD COUNT (AUTO) 9.9 K/uL (4.8-10.8)
[2020-12-02 07:07] LABS: CALCIUM 8.5 mg/dL (8.4-11.0); CREATININE 2.27 mg/dL (0.55-1.30); POTASSIUM 4.2 mmol/L (3.5-5.1)
[2020-12-02 08:00] VITALS: BP_SYST 142
[2020-12-02] MEDS: GLIMEPIRIDE 2 MG TABLET PO SCH (08:26)
[2020-12-02] MEDS: amLODIPine BESYLATE 10 MG TABLET PO SCH (08:27)
[2020-12-02] MEDS: NACL 0.9% 1,000 ML IV SCH (08:42)
[2020-12-02 11:09] VITALS: BP_SYST 136
[2020-12-02 15:55] VITALS: BP_SYST 120
[2020-12-02 20:00] VITALS: BP_SYST 132
[2020-12-02] MEDS: ENOXAPARIN SODIUM 40 MG/0.4 ML SYRINGE SUBCUT SCH (20:42)
[2020-12-03 00:34] VITALS: BP_SYST 118
[2020-12-03] MEDS: AMPICILLIN SODIUM/SULBACTAM NA 1.5 GM in NS 50 ML IV SCH ×4 (06:17→23:56)
[2020-12-03] MEDS: NACL 0.9% 1,000 ML IV SCH (06:17)
[2020-12-03] MEDS: INSULIN REGULAR, HUMAN 100 UNITS/ML, 10 ML VIAL (humuLIN R) SUBCUT PRN ×4 (06:23→20:34)
[2020-12-03 06:37] LABS: BASOPHILS % (AUTO) 0.4 % (0.0-2.0); EOSINOPHILS # (AUTO) 0.5 K/uL (0.0-0.4); EOSINOPHILS % (AUTO) 4.9 % (0.0-4.0); HEMOGLOBIN 11.4 g/dL (14.0-18.0); LYMPHOCYTES # (AUTO) 1.7 K/uL (1.0-5.5); LYMPHOCYTES % (AUTO) 17.4 % (20.5-51.5); MEAN CORPUSCULAR HEMOGLOBIN 29 pg (27-31); MEAN CORPUSCULAR HGB CONC 34 % (32-36); MEAN CORPUSCULAR VOLUME 85 fL (79.0-98.0); MONOCYTES # (AUTO) 0.9 K/uL (0.0-1.0); MONOCYTES % (AUTO) 9.1 % (1.7-9.3); NEUTROPHILS # (AUTO) 6.8 K/uL (1.8-7.7); NEUTROPHILS % (AUTO) 68.2 % (40.0-70.0); PLATELET COUNT (AUTO) 275 K/uL (130-430)
[2020-12-03 07:02] LABS: ALBUMIN 2.7 g/dL (3.4-4.8); CALCIUM 8.5 mg/dL (8.4-11.0); CREATININE 1.99 mg/dL (0.55-1.30); POTASSIUM 4.5 mmol/L (3.5-5.1); TOTAL BILIRUBIN 0.3 mg/dL (0.0-1.0)
[2020-12-03 08:00] VITALS: BP_SYST 133
[2020-12-03] MEDS: GLIMEPIRIDE 2 MG TABLET PO SCH (08:58)
[2020-12-03] MEDS: amLODIPine BESYLATE 10 MG TABLET PO SCH (08:59)
[2020-12-03 12:15] VITALS: BP_SYST 129
[2020-12-03 15:33] VITALS: BP_SYST 133
[2020-12-03 20:00] VITALS: BP_SYST 128
[2020-12-03] MEDS: ENOXAPARIN SODIUM 40 MG/0.4 ML SYRINGE SUBCUT SCH (20:31)
[2020-12-04] VITALS: BP_SYST 123
[2020-12-04] MEDS: AMPICILLIN SODIUM/SULBACTAM NA 1.5 GM in NS 50 ML IV SCH ×4 (06:09→23:19)
[2020-12-04] MEDS: NACL 0.9% 1,000 ML IV SCH ×4 (06:09→23:19)
[2020-12-04] MEDS: INSULIN REGULAR, HUMAN 100 UNITS/ML, 10 ML VIAL (humuLIN R) SUBCUT PRN (06:14)
[2020-12-04 06:34] LABS: BASOPHILS % (AUTO) 0.4 % (0.0-2.0); EOSINOPHILS # (AUTO) 0.5 K/uL (0.0-0.4); EOSINOPHILS % (AUTO) 5.9 % (0.0-4.0); HEMATOCRIT 34.1 % (36-54); HEMOGLOBIN 11.5 g/dL (14.0-18.0); LYMPHOCYTES # (AUTO) 1.6 K/uL (1.0-5.5); LYMPHOCYTES % (AUTO) 20.6 % (20.5-51.5); MEAN CORPUSCULAR HEMOGLOBIN 29 pg (27-31); MEAN CORPUSCULAR HGB CONC 34 % (32-36); MEAN CORPUSCULAR VOLUME 85 fL (79.0-98.0); MONOCYTES # (AUTO) 0.8 K/uL (0.0-1.0); MONOCYTES % (AUTO) 10.3 % (1.7-9.3); NEUTROPHILS % (AUTO) 62.8 % (40.0-70.0); PLATELET COUNT (AUTO) 301 K/uL (130-430); RED BLOOD CELL COUNT(AUTO) 4.01 MIL/uL (4.2-6.2); RED CELL DISTRIBUTION WIDTH 13.7 % (9.0-15.0)
[2020-12-04 07:00] LABS: ALBUMIN 2.8 g/dL (3.4-4.8); CALCIUM 8.2 mg/dL (8.4-11.0); CREATININE 1.86 mg/dL (0.55-1.30); POTASSIUM 3.8 mmol/L (3.5-5.1); TOTAL BILIRUBIN 0.3 mg/dL (0.0-1.0)
[2020-12-04 08:08] VITALS: BP_SYST 115
[2020-12-04] MEDS: GLIMEPIRIDE 2 MG TABLET PO SCH (08:53)
[2020-12-04] MEDS: amLODIPine BESYLATE 10 MG TABLET PO SCH (08:53)
[2020-12-04 12:03] VITALS: BP_SYST 122
[2020-12-04] MEDS ORDERED: HYDROmorphone 1 INJ. 1 MG/ML CARTRIDGE IVP PRN ×2 (12:45)
[2020-12-04] MEDS ORDERED: MEPERIDINE HCL/PF 25 MG/ML DISP.SYRIN IVP PRN (12:45)
[2020-12-04] MEDS ORDERED: METOCLOPRAMIDE HCL 10 MG/2 ML VIAL IVP PRN (12:45)
[2020-12-04] MEDS ORDERED: ONDANSETRON HCL 4 MG/2 ML VIAL IVP PRN (12:45)
[2020-12-04] MEDS ORDERED: MIDAZOLAM HCL 2 MG/2 ML VIAL (VERSED) IVP PRN (12:45)
[2020-12-04] MEDS ORDERED: HYDROmorphone 1 INJ. 1 MG/ML CARTRIDGE ONE (14:11)
[2020-12-04 14:31] VITALS: BP_SYST 122
[2020-12-04 15:00] VITALS: BP_SYST 120
[2020-12-04 20:00] VITALS: BP_SYST 135
[2020-12-04] MEDS: ENOXAPARIN SODIUM 40 MG/0.4 ML SYRINGE SUBCUT SCH (20:14)
[2020-12-05] VITALS: BP_SYST 120
[2020-12-05] MEDS: AMPICILLIN SODIUM/SULBACTAM NA 1.5 GM in NS 50 ML IV SCH (06:09)
[2020-12-05 07:00] LABS: BASOPHILS % (AUTO) 0.4 % (0.0-2.0); EOSINOPHILS # (AUTO) 0.6 K/uL (0.0-0.4); EOSINOPHILS % (AUTO) 6.5 % (0.0-4.0); HEMATOCRIT 33.8 % (36-54); HEMOGLOBIN 11.6 g/dL (14.0-18.0); LYMPHOCYTES # (AUTO) 1.4 K/uL (1.0-5.5); LYMPHOCYTES % (AUTO) 16.7 % (20.5-51.5); MEAN CORPUSCULAR HEMOGLOBIN 29 pg (27-31); MEAN CORPUSCULAR HGB CONC 34 % (32-36); MEAN CORPUSCULAR VOLUME 85 fL (79.0-98.0); MONOCYTES # (AUTO) 0.8 K/uL (0.0-1.0); MONOCYTES % (AUTO) 9.8 % (1.7-9.3); NEUTROPHILS # (AUTO) 5.7 K/uL (1.8-7.7); NEUTROPHILS % (AUTO) 66.6 % (40.0-70.0); PLATELET COUNT (AUTO) 325 K/uL (130-430); RED BLOOD CELL COUNT(AUTO) 3.99 MIL/uL (4.2-6.2); RED CELL DISTRIBUTION WIDTH 13.9 % (9.0-15.0); WHITE BLOOD COUNT (AUTO) 8.6 K/uL (4.8-10.8)
[2020-12-05 07:49] LABS: ALBUMIN 2.9 g/dL (3.4-4.8); CALCIUM 8.4 mg/dL (8.4-11.0); CREATININE 1.74 mg/dL (0.55-1.30); POTASSIUM 3.9 mmol/L (3.5-5.1); TOTAL BILIRUBIN 0.3 mg/dL (0.0-1.0)
[2020-12-05 08:00] VITALS: BP_SYST 137
[2020-12-05] MEDS: GLIMEPIRIDE 2 MG TABLET PO SCH (08:40)
[2020-12-05] MEDS: amLODIPine BESYLATE 10 MG TABLET PO SCH (08:40)
[2020-12-05] MEDS: NACL 0.9% 1,000 ML IV SCH ×3 (10:30→18:10)
[2020-12-05] MEDS: PIPERACILLIN/TAZO 2.25G/DEX-IS 50 ML IV SCH ×3 (11:11→23:56)
[2020-12-05 12:00] VITALS: BP_SYST 137
[2020-12-05] MEDS: INSULIN REGULAR, HUMAN 100 UNITS/ML, 10 ML VIAL (humuLIN R) SUBCUT PRN ×2 (12:12→22:02)
[2020-12-05] MEDS ORDERED: FAMOTIDINE PF 20 MG/2 ML VIAL ONE (13:37)
[2020-12-05 16:00] VITALS: BP_SYST 129
[2020-12-05 20:00] VITALS: BP_SYST 117
[2020-12-05] MEDS: DOXYCYCLINE HYCLATE 100 MG CAPSULE PO SCH (21:56)
[2020-12-05] MEDS: ENOXAPARIN SODIUM 40 MG/0.4 ML SYRINGE SUBCUT SCH (21:59)
[2020-12-06 01:46] VITALS: BP_SYST 128
[2020-12-06] MEDS: NACL 0.9% 1,000 ML IV SCH ×3 (04:45→16:23)
[2020-12-06] MEDS: PIPERACILLIN/TAZO 2.25G/DEX-IS 50 ML IV SCH ×3 (06:21→17:04)
[2020-12-06 07:47] VITALS: BP_SYST 148
[2020-12-06] MEDS: DOXYCYCLINE HYCLATE 100 MG CAPSULE PO SCH ×2 (08:27→20:35)
[2020-12-06] MEDS: amLODIPine BESYLATE 10 MG TABLET PO SCH (08:27)
[2020-12-06] MEDS: GLIMEPIRIDE 2 MG TABLET PO SCH (08:28)
[2020-12-06] MEDS: INSULIN REGULAR, HUMAN 100 UNITS/ML, 10 ML VIAL (humuLIN R) SUBCUT PRN ×2 (12:06→17:07)
[2020-12-06 12:25] VITALS: BP_SYST 125
[2020-12-06 16:31] VITALS: BP_SYST 126
[2020-12-06] MEDS: ENOXAPARIN SODIUM 40 MG/0.4 ML SYRINGE SUBCUT SCH (20:37)
[2020-12-07] MEDS: NACL 0.9% 1,000 ML IV SCH ×4 (00:10→21:22)
[2020-12-07] MEDS: PIPERACILLIN/TAZO 2.25G/DEX-IS 50 ML IV SCH ×4 (00:10→17:55)
[2020-12-07 00:27] VITALS: BP_SYST 115
[2020-12-07 08:11] VITALS: BP_SYST 115
[2020-12-07 09:44] VITALS: BP_SYST 110
[2020-12-07] MEDS: amLODIPine BESYLATE 10 MG TABLET PO SCH (09:44)
[2020-12-07] MEDS: DOXYCYCLINE HYCLATE 100 MG CAPSULE PO SCH ×2 (09:44→21:21)
[2020-12-07] MEDS: GLIMEPIRIDE 2 MG TABLET PO SCH (09:44)
[2020-12-07 11:45] VITALS: BP_SYST 105
[2020-12-07] MEDS: INSULIN REGULAR, HUMAN 100 UNITS/ML, 10 ML VIAL (humuLIN R) SUBCUT PRN (12:40)
[2020-12-07 16:00] VITALS: BP_SYST 113
[2020-12-07] MEDS: ENOXAPARIN SODIUM 40 MG/0.4 ML SYRINGE SUBCUT SCH (21:24)
[2020-12-08 00:36] VITALS: BP_SYST 105
[2020-12-08] MEDS: NACL 0.9% 1,000 ML IV SCH ×3 (05:51→18:01)
[2020-12-08] MEDS: PIPERACILLIN/TAZO 2.25G/DEX-IS 50 ML IV SCH ×4 (06:11→18:02)
[2020-12-08] MEDS: amLODIPine BESYLATE 10 MG TABLET PO SCH (08:39)
[2020-12-08] MEDS: GLIMEPIRIDE 2 MG TABLET PO SCH (08:39)
[2020-12-08 08:40] VITALS: BP_SYST 114
[2020-12-08] MEDS: DOXYCYCLINE HYCLATE 100 MG CAPSULE PO SCH ×2 (08:40→20:45)
[2020-12-08 12:35] VITALS: BP_SYST 122
[2020-12-08 16:01] VITALS: BP_SYST 124
[2020-12-08] MEDS: ENOXAPARIN SODIUM 40 MG/0.4 ML SYRINGE SUBCUT SCH (20:54)
[2020-12-09 00:16] VITALS: BP_SYST 125
[2020-12-09] MEDS: PIPERACILLIN/TAZO 2.25G/DEX-IS 50 ML IV SCH ×5 (00:18→23:49)
[2020-12-09] MEDS: NACL 0.9% 1,000 ML IV SCH ×5 (00:30→22:22)
[2020-12-09 08:00] VITALS: BP_SYST 131
[2020-12-09] MEDS: DOXYCYCLINE HYCLATE 100 MG CAPSULE PO SCH ×2 (09:05→22:11)
[2020-12-09] MEDS: GLIMEPIRIDE 2 MG TABLET PO SCH (09:05)
[2020-12-09] MEDS: amLODIPine BESYLATE 10 MG TABLET PO SCH (09:06)
[2020-12-09 11:26] VITALS: BP_SYST 115
[2020-12-09] MEDS: INSULIN REGULAR, HUMAN 100 UNITS/ML, 10 ML VIAL (humuLIN R) SUBCUT PRN (12:11)
[2020-12-09 15:24] VITALS: BP_SYST 110
[2020-12-09 19:40] VITALS: BP_SYST 118
[2020-12-09] MEDS: ENOXAPARIN SODIUM 40 MG/0.4 ML SYRINGE SUBCUT SCH (22:21)
[2020-12-10] VITALS (7 sets, daily range): BP systolic 105–130
[2020-12-10 06:25] LABS: BASOPHILS # (AUTO) 0.1 K/uL (0.0-0.2); BASOPHILS % (AUTO) 0.8 % (0.0-2.0); EOSINOPHILS # (AUTO) 0.4 K/uL (0.0-0.4); EOSINOPHILS % (AUTO) 4.5 % (0.0-4.0); HEMATOCRIT 32.7 % (36-54); HEMOGLOBIN 11.3 g/dL (14.0-18.0); LYMPHOCYTES # (AUTO) 2.2 K/uL (1.0-5.5); LYMPHOCYTES % (AUTO) 25.5 % (20.5-51.5); MEAN CORPUSCULAR HEMOGLOBIN 29 pg (27-31); MEAN CORPUSCULAR HGB CONC 35 % (32-36); MEAN CORPUSCULAR VOLUME 84 fL (79.0-98.0); MONOCYTES % (AUTO) 11.3 % (1.7-9.3); NEUTROPHILS % (AUTO) 57.9 % (40.0-70.0); PLATELET COUNT (AUTO) 379 K/uL (130-430); RED BLOOD CELL COUNT(AUTO) 3.89 MIL/uL (4.2-6.2); WHITE BLOOD COUNT (AUTO) 8.6 K/uL (4.8-10.8)
[2020-12-10] MEDS: PIPERACILLIN/TAZO 2.25G/DEX-IS 50 ML IV SCH ×3 (06:47→17:36)
[2020-12-10 07:23] LABS: CALCIUM 8.6 mg/dL (8.4-11.0); CREATININE 1.68 mg/dL (0.55-1.30); POTASSIUM 3.9 mmol/L (3.5-5.1)
[2020-12-10] MEDS: NACL 0.9% 1,000 ML IV SCH ×2 (08:45→14:20)
[2020-12-10] MEDS: GLIMEPIRIDE 2 MG TABLET PO SCH (08:49)
[2020-12-10] MEDS: DOXYCYCLINE HYCLATE 100 MG CAPSULE PO SCH ×2 (08:49→20:17)
[2020-12-10] MEDS: amLODIPine BESYLATE 10 MG TABLET PO SCH (08:50)
[2020-12-10] MEDS: INSULIN REGULAR, HUMAN 100 UNITS/ML, 10 ML VIAL (humuLIN R) SUBCUT PRN ×2 (12:08→20:22)
[2020-12-10 17:57] LABS: BILIRUBIN,URINE NEGATIVE (NEGATIVE); BLOOD, URINE NEGATIVE (NEGATIVE); CLARITY/URINE CLEAR (CLEAR); COLOR,URINE YELLOW (YELLOW); GLUCOSE,URINE NEGATIVE (NEGATIVE); KETONES,URINE NEGATIVE (NEGATIVE); NITRITE, URINE NEGATIVE (NEGATIVE); PROTEIN URINE NEGATIVE (NEGATIVE); UROBILINOGEN,URINE 0.2 (0.2-1.0)
[2020-12-10 18:16] LABS: LEUKOCYTE ESTERASE ,URINE NEGATIVE (NEGATIVE)
[2020-12-10] MEDS: ENOXAPARIN SODIUM 40 MG/0.4 ML SYRINGE SUBCUT SCH (20:24)
[2020-12-11] VITALS: BP_SYST 128
[2020-12-11] MEDS: PIPERACILLIN/TAZO 2.25G/DEX-IS 50 ML IV SCH ×4 (00:32→18:03)
[2020-12-11] MEDS: NACL 0.9% 1,000 ML IV SCH ×3 (05:09→18:04)
[2020-12-11 07:46] VITALS: BP_SYST 132
[2020-12-11] MEDS: amLODIPine BESYLATE 10 MG TABLET PO SCH (08:10)
[2020-12-11] MEDS: GLIMEPIRIDE 2 MG TABLET PO SCH (08:10)
[2020-12-11] MEDS: DOXYCYCLINE HYCLATE 100 MG CAPSULE PO SCH ×2 (08:11→21:09)
[2020-12-11 11:33] VITALS: BP_SYST 128
[2020-12-11] MEDS ORDERED: HYDROmorphone 1 INJ. 1 MG/ML CARTRIDGE IVP PRN ×2 (14:45)
[2020-12-11] MEDS ORDERED: MEPERIDINE HCL/PF 25 MG/ML DISP.SYRIN IVP PRN (14:45)
[2020-12-11] MEDS ORDERED: MIDAZOLAM HCL 2 MG/2 ML VIAL (VERSED) IVP PRN (14:45)
[2020-12-11] MEDS ORDERED: ONDANSETRON HCL 4 MG/2 ML VIAL IVP PRN (14:45)
[2020-12-11] MEDS ORDERED: METOCLOPRAMIDE HCL 10 MG/2 ML VIAL IVP PRN (14:45)
[2020-12-11] MEDS ORDERED: LR 1,000 ML IV SCH (14:45)
[2020-12-11 16:05] VITALS: BP_SYST 133
[2020-12-11 20:00] VITALS: BP_SYST 135
[2020-12-11] MEDS: ENOXAPARIN SODIUM 40 MG/0.4 ML SYRINGE SUBCUT SCH (21:12)
[2020-12-11] MEDS: INSULIN REGULAR, HUMAN 100 UNITS/ML, 10 ML VIAL (humuLIN R) SUBCUT PRN (21:14)
[2020-12-12] MEDS: PIPERACILLIN/TAZO 2.25G/DEX-IS 50 ML IV SCH ×4 (00:59→17:39)
[2020-12-12 01:24] VITALS: BP_SYST 118
[2020-12-12] MEDS: NACL 0.9% 1,000 ML IV SCH ×2 (05:02→16:03)
[2020-12-12] MEDS: INSULIN REGULAR, HUMAN 100 UNITS/ML, 10 ML VIAL (humuLIN R) SUBCUT PRN (06:20)
[2020-12-12 08:23] VITALS: BP_SYST 126
[2020-12-12] MEDS: amLODIPine BESYLATE 10 MG TABLET PO SCH (09:44)
[2020-12-12] MEDS: GLIMEPIRIDE 2 MG TABLET PO SCH (09:45)
[2020-12-12 10:20] LABS: INR 1.2 (0.80-1.20)
[2020-12-12 11:34] VITALS: BP_SYST 125
[2020-12-12] MEDS ORDERED: DOXYCYCLINE HYCLATE 100 MG CAPSULE PO ONE (13:15)
[2020-12-12 15:43] VITALS: BP_SYST 142
[2020-12-12] MEDS: DOXYCYCLINE HYCLATE 100 MG CAPSULE PO SCH (22:51)
[2020-12-12] MEDS: ENOXAPARIN SODIUM 40 MG/0.4 ML SYRINGE SUBCUT SCH (23:00)
[2020-12-13] MEDS: PIPERACILLIN/TAZO 2.25G/DEX-IS 50 ML IV SCH ×4 (01:14→18:30)
[2020-12-13 01:54] VITALS: BP_SYST 121
[2020-12-13] MEDS: NACL 0.9% 1,000 ML IV SCH ×2 (06:27→16:45)
[2020-12-13 08:00] VITALS: BP_SYST 131
[2020-12-13] MEDS: GLIMEPIRIDE 2 MG TABLET PO SCH (08:32)
[2020-12-13] MEDS: DOXYCYCLINE HYCLATE 100 MG CAPSULE PO SCH ×2 (08:32→20:43)
[2020-12-13] MEDS: amLODIPine BESYLATE 10 MG TABLET PO SCH (08:33)
[2020-12-13 11:09] LABS: BASOPHILS # (AUTO) 0.1 K/uL (0.0-0.2); BASOPHILS % (AUTO) 0.7 % (0.0-2.0); EOSINOPHILS # (AUTO) 0.2 K/uL (0.0-0.4); EOSINOPHILS % (AUTO) 2.8 % (0.0-4.0); HEMATOCRIT 34.6 % (36-54); HEMOGLOBIN 11.8 g/dL (14.0-18.0); LYMPHOCYTES # (AUTO) 1.6 K/uL (1.0-5.5); LYMPHOCYTES % (AUTO) 21.4 % (20.5-51.5); MEAN CORPUSCULAR HEMOGLOBIN 29 pg (27-31); MEAN CORPUSCULAR HGB CONC 34 % (32-36); MEAN CORPUSCULAR VOLUME 84 fL (79.0-98.0); MONOCYTES # (AUTO) 0.7 K/uL (0.0-1.0); MONOCYTES % (AUTO) 9.4 % (1.7-9.3); NEUTROPHILS # (AUTO) 4.9 K/uL (1.8-7.7); NEUTROPHILS % (AUTO) 65.7 % (40.0-70.0); PLATELET COUNT (AUTO) 306 K/uL (130-430); RED BLOOD CELL COUNT(AUTO) 4.13 MIL/uL (4.2-6.2); RED CELL DISTRIBUTION WIDTH 14.1 % (9.0-15.0); WHITE BLOOD COUNT (AUTO) 7.5 K/uL (4.8-10.8)
[2020-12-13 11:24] LABS: CALCIUM 8.2 mg/dL (8.4-11.0); CREATININE 1.49 mg/dL (0.55-1.30)
[2020-12-13 11:30] LABS: ALBUMIN 2.9 g/dL (3.4-4.8); TOTAL BILIRUBIN 0.4 mg/dL (0.0-1.0)
[2020-12-13 12:15] VITALS: BP_SYST 124
[2020-12-13 16:20] VITALS: BP_SYST 131
[2020-12-13 20:00] VITALS: BP_SYST 139
[2020-12-13] MEDS: ENOXAPARIN SODIUM 40 MG/0.4 ML SYRINGE SUBCUT SCH (20:56)
[2020-12-13] MEDS: INSULIN REGULAR, HUMAN 100 UNITS/ML, 10 ML VIAL (humuLIN R) SUBCUT PRN (20:57)
[2020-12-14] VITALS: BP_SYST 131
[2020-12-14] MEDS: NACL 0.9% 1,000 ML IV SCH ×3 (03:56→16:06)
[2020-12-14] MEDS: PIPERACILLIN/TAZO 2.25G/DEX-IS 50 ML IV SCH ×4 (05:22→17:10)
[2020-12-14 07:50] VITALS: BP_SYST 145
[2020-12-14] MEDS: GLIMEPIRIDE 2 MG TABLET PO SCH (08:19)
[2020-12-14] MEDS: amLODIPine BESYLATE 10 MG TABLET PO SCH (08:19)
[2020-12-14] MEDS: DOXYCYCLINE HYCLATE 100 MG CAPSULE PO SCH ×2 (08:19→20:48)
[2020-12-14 12:00] VITALS: BP_SYST 159
[2020-12-14 16:00] VITALS: BP_SYST 163
[2020-12-14] MEDS: ENOXAPARIN SODIUM 40 MG/0.4 ML SYRINGE SUBCUT SCH (20:49)
[2020-12-15] MEDS: PIPERACILLIN/TAZO 2.25G/DEX-IS 50 ML IV SCH ×5 (00:26→23:48)
[2020-12-15 00:39] VITALS: BP_SYST 125
[2020-12-15] MEDS: NACL 0.9% 1,000 ML IV SCH ×2 (05:03→17:03)
[2020-12-15 08:11] VITALS: BP_SYST 133
[2020-12-15] MEDS: DOXYCYCLINE HYCLATE 100 MG CAPSULE PO SCH ×2 (08:12→20:34)
[2020-12-15] MEDS: GLIMEPIRIDE 2 MG TABLET PO SCH (08:12)
[2020-12-15] MEDS: amLODIPine BESYLATE 10 MG TABLET PO SCH (08:13)
[2020-12-15 11:25] VITALS: BP_SYST 133
[2020-12-15 15:59] VITALS: BP_SYST 125
[2020-12-15 20:06] VITALS: BP_SYST 143
[2020-12-15] MEDS: ENOXAPARIN SODIUM 40 MG/0.4 ML SYRINGE SUBCUT SCH (20:36)
[2020-12-16 00:48] VITALS: BP_SYST 131
[2020-12-16] MEDS: NACL 0.9% 1,000 ML IV SCH ×3 (05:09→23:49)
[2020-12-16] MEDS: PIPERACILLIN/TAZO 2.25G/DEX-IS 50 ML IV SCH ×4 (06:29→23:49)
[2020-12-16 06:44] LABS: BASOPHILS # (AUTO) 0.1 K/uL (0.0-0.2); BASOPHILS % (AUTO) 0.7 % (0.0-2.0); EOSINOPHILS # (AUTO) 0.4 K/uL (0.0-0.4); EOSINOPHILS % (AUTO) 4.2 % (0.0-4.0); HEMOGLOBIN 10.8 g/dL (14.0-18.0); LYMPHOCYTES # (AUTO) 2.3 K/uL (1.0-5.5); LYMPHOCYTES % (AUTO) 26.6 % (20.5-51.5); MEAN CORPUSCULAR HEMOGLOBIN 29 pg (27-31); MEAN CORPUSCULAR HGB CONC 35 % (32-36); MEAN CORPUSCULAR VOLUME 84 fL (79.0-98.0); MONOCYTES # (AUTO) 1.1 K/uL (0.0-1.0); MONOCYTES % (AUTO) 12.7 % (1.7-9.3); NEUTROPHILS # (AUTO) 4.9 K/uL (1.8-7.7); NEUTROPHILS % (AUTO) 55.8 % (40.0-70.0); PLATELET COUNT (AUTO) 258 K/uL (130-430); RED BLOOD CELL COUNT(AUTO) 3.68 MIL/uL (4.2-6.2); RED CELL DISTRIBUTION WIDTH 14.3 % (9.0-15.0); WHITE BLOOD COUNT (AUTO) 8.7 K/uL (4.8-10.8)
[2020-12-16 07:01] LABS: ALBUMIN 2.7 g/dL (3.4-4.8); CALCIUM 8.3 mg/dL (8.4-11.0); CREATININE 1.59 mg/dL (0.55-1.30); POTASSIUM 3.5 mmol/L (3.5-5.1); TOTAL BILIRUBIN 0.3 mg/dL (0.0-1.0)
[2020-12-16 08:01] VITALS: BP_SYST 138
[2020-12-16] MEDS: amLODIPine BESYLATE 10 MG TABLET PO SCH (08:57)
[2020-12-16] MEDS: GLIMEPIRIDE 2 MG TABLET PO SCH (08:58)
[2020-12-16] MEDS: DOXYCYCLINE HYCLATE 100 MG CAPSULE PO SCH ×2 (08:58→21:01)
[2020-12-16 09:00] VITALS: BP_SYST 138
[2020-12-16 12:06] VITALS: BP_SYST 151
[2020-12-16 16:05] VITALS: BP_SYST 138
[2020-12-16 19:36] VITALS: BP_SYST 151
[2020-12-16] MEDS: ENOXAPARIN SODIUM 40 MG/0.4 ML SYRINGE SUBCUT SCH (21:05)
[2020-12-17] VITALS (7 sets, daily range): BP systolic 128–158
[2020-12-17] MEDS: PIPERACILLIN/TAZO 2.25G/DEX-IS 50 ML IV SCH ×3 (06:24→17:16)
[2020-12-17 07:30] LABS: BASOPHILS % (AUTO) 0.6 % (0.0-2.0); EOSINOPHILS # (AUTO) 0.4 K/uL (0.0-0.4); EOSINOPHILS % (AUTO) 4.4 % (0.0-4.0); HEMATOCRIT 31.8 % (36-54); HEMOGLOBIN 10.9 g/dL (14.0-18.0); LYMPHOCYTES # (AUTO) 2.3 K/uL (1.0-5.5); LYMPHOCYTES % (AUTO) 26.4 % (20.5-51.5); MEAN CORPUSCULAR HEMOGLOBIN 29 pg (27-31); MEAN CORPUSCULAR HGB CONC 34 % (32-36); MEAN CORPUSCULAR VOLUME 84 fL (79.0-98.0); MONOCYTES # (AUTO) 0.9 K/uL (0.0-1.0); MONOCYTES % (AUTO) 10.2 % (1.7-9.3); NEUTROPHILS # (AUTO) 5.1 K/uL (1.8-7.7); NEUTROPHILS % (AUTO) 58.4 % (40.0-70.0); PLATELET COUNT (AUTO) 270 K/uL (130-430); RED BLOOD CELL COUNT(AUTO) 3.77 MIL/uL (4.2-6.2); WHITE BLOOD COUNT (AUTO) 8.8 K/uL (4.8-10.8)
[2020-12-17 08:34] LABS: ALBUMIN 2.8 g/dL (3.4-4.8); CALCIUM 8.3 mg/dL (8.4-11.0); CREATININE 1.35 mg/dL (0.55-1.30); POTASSIUM 3.6 mmol/L (3.5-5.1); TOTAL BILIRUBIN 0.3 mg/dL (0.0-1.0)
[2020-12-17] MEDS: DOXYCYCLINE HYCLATE 100 MG CAPSULE PO SCH ×2 (08:43→21:43)
[2020-12-17] MEDS: NACL 0.9% 1,000 ML IV SCH ×2 (08:44→21:43)
[2020-12-17] MEDS: GLIMEPIRIDE 2 MG TABLET PO SCH (08:44)
[2020-12-17] MEDS: amLODIPine BESYLATE 10 MG TABLET PO SCH (08:44)
[2020-12-17] MEDS: ENOXAPARIN SODIUM 40 MG/0.4 ML SYRINGE SUBCUT SCH (21:47)
[2020-12-18 00:07] VITALS: BP_SYST 140
[2020-12-18] MEDS: PIPERACILLIN/TAZO 2.25G/DEX-IS 50 ML IV SCH ×2 (00:18→06:22)
[2020-12-18] MEDS: NACL 0.9% 1,000 ML IV SCH ×3 (06:22→22:25)
[2020-12-18 06:33] LABS: BASOPHILS # (AUTO) 0.1 K/uL (0.0-0.2); BASOPHILS % (AUTO) 0.6 % (0.0-2.0); EOSINOPHILS # (AUTO) 0.4 K/uL (0.0-0.4); EOSINOPHILS % (AUTO) 4.8 % (0.0-4.0); HEMATOCRIT 35.1 % (36-54); LYMPHOCYTES # (AUTO) 2.3 K/uL (1.0-5.5); LYMPHOCYTES % (AUTO) 26.2 % (20.5-51.5); MEAN CORPUSCULAR HEMOGLOBIN 29 pg (27-31); MEAN CORPUSCULAR HGB CONC 34 % (32-36); MEAN CORPUSCULAR VOLUME 84 fL (79.0-98.0); MONOCYTES # (AUTO) 0.9 K/uL (0.0-1.0); MONOCYTES % (AUTO) 9.9 % (1.7-9.3); NEUTROPHILS # (AUTO) 5.2 K/uL (1.8-7.7); NEUTROPHILS % (AUTO) 58.5 % (40.0-70.0); PLATELET COUNT (AUTO) 263 K/uL (130-430); RED CELL DISTRIBUTION WIDTH 14.3 % (9.0-15.0); WHITE BLOOD COUNT (AUTO) 8.9 K/uL (4.8-10.8)
[2020-12-18 07:01] LABS: ALBUMIN 2.9 g/dL (3.4-4.8); CALCIUM 8.6 mg/dL (8.4-11.0); CREATININE 1.3 mg/dL (0.55-1.30); POTASSIUM 3.4 mmol/L (3.5-5.1); TOTAL BILIRUBIN 0.3 mg/dL (0.0-1.0)
[2020-12-18] MEDS: GLIMEPIRIDE 2 MG TABLET PO SCH (08:21)
[2020-12-18] MEDS: DOXYCYCLINE HYCLATE 100 MG CAPSULE PO SCH ×2 (08:22→22:21)
[2020-12-18] MEDS: amLODIPine BESYLATE 10 MG TABLET PO SCH (08:22)
[2020-12-18] MEDS: CEFEPIME 1 GM in D5W 50 ML IV SCH (12:21)
[2020-12-18 12:31] VITALS: BP_SYST 136
[2020-12-18 15:22] VITALS: BP_SYST 144
[2020-12-18 16:00] VITALS: BP_SYST 124
[2020-12-18] MEDS ORDERED: HYDROmorphone 2 MG/ML VIAL IVP PRN ×2 (16:45)
[2020-12-18] MEDS ORDERED: LR 1,000 ML IV SCH (16:45)
[2020-12-18] MEDS ORDERED: HYDROmorphone 1 INJ. 1 MG/ML CARTRIDGE IVP PRN (16:45)
[2020-12-18] MEDS ORDERED: MEPERIDINE HCL/PF 25 MG/ML DISP.SYRIN IVP PRN (16:45)
[2020-12-18 20:45] VITALS: BP_SYST 130
[2020-12-18] MEDS: ENOXAPARIN SODIUM 40 MG/0.4 ML SYRINGE SUBCUT SCH (22:22)
[2020-12-18] MEDS: INSULIN REGULAR, HUMAN 100 UNITS/ML, 10 ML VIAL (humuLIN R) SUBCUT PRN (22:24)
[2020-12-19 00:20] VITALS: BP_SYST 127
[2020-12-19] MEDS: NACL 0.9% 1,000 ML IV SCH ×2 (06:28→21:15)
[2020-12-19 06:30] LABS: BASOPHILS % (AUTO) 0.2 % (0.0-2.0); HEMATOCRIT 31.4 % (36-54); HEMOGLOBIN 10.8 g/dL (14.0-18.0); LYMPHOCYTES # (AUTO) 1.2 K/uL (1.0-5.5); MEAN CORPUSCULAR HEMOGLOBIN 29 pg (27-31); MEAN CORPUSCULAR HGB CONC 35 % (32-36); MEAN CORPUSCULAR VOLUME 84 fL (79.0-98.0); MONOCYTES # (AUTO) 0.4 K/uL (0.0-1.0); MONOCYTES % (AUTO) 4.8 % (1.7-9.3); NEUTROPHILS # (AUTO) 7.5 K/uL (1.8-7.7); PLATELET COUNT (AUTO) 256 K/uL (130-430); RED BLOOD CELL COUNT(AUTO) 3.73 MIL/uL (4.2-6.2); WHITE BLOOD COUNT (AUTO) 9.1 K/uL (4.8-10.8)
[2020-12-19] MEDS: INSULIN REGULAR, HUMAN 100 UNITS/ML, 10 ML VIAL (humuLIN R) SUBCUT PRN ×2 (06:30→21:24)
[2020-12-19 06:50] LABS: ALBUMIN 2.8 g/dL (3.4-4.8); CALCIUM 8.5 mg/dL (8.4-11.0); CREATININE 1.27 mg/dL (0.55-1.30); TOTAL BILIRUBIN 0.3 mg/dL (0.0-1.0)
[2020-12-19 08:00] VITALS: BP_SYST 137
[2020-12-19] MEDS: GLIMEPIRIDE 2 MG TABLET PO SCH (08:48)
[2020-12-19] MEDS: DOXYCYCLINE HYCLATE 100 MG CAPSULE PO SCH (08:48)
[2020-12-19] MEDS: amLODIPine BESYLATE 10 MG TABLET PO SCH (08:48)
[2020-12-19] MEDS: CEFEPIME 1 GM in D5W 50 ML IV SCH (11:40)
[2020-12-19 12:09] VITALS: BP_SYST 136
[2020-12-19 14:01] VITALS: BP_SYST 136
[2020-12-19 16:56] VITALS: BP_SYST 132
[2020-12-19] MEDS: ENOXAPARIN SODIUM 40 MG/0.4 ML SYRINGE SUBCUT SCH (21:23)
[2020-12-19 21:25] VITALS: BP_SYST 125
[2020-12-20] MEDS: NACL 0.9% 1,000 ML IV SCH ×2 (06:20→14:38)
[2020-12-20] MEDS: INSULIN REGULAR, HUMAN 100 UNITS/ML, 10 ML VIAL (humuLIN R) SUBCUT PRN ×2 (06:20→20:08)
[2020-12-20] MEDS: amLODIPine BESYLATE 10 MG TABLET PO SCH (08:53)
[2020-12-20] MEDS: GLIMEPIRIDE 2 MG TABLET PO SCH (08:53)
[2020-12-20 11:32] VITALS: BP_SYST 124
[2020-12-20] MEDS: CEFEPIME 1 GM in D5W 50 ML IV SCH (12:15)
[2020-12-20 15:14] VITALS: BP_SYST 139
[2020-12-20 20:00] VITALS: BP_SYST 144; BP_SYST 156
[2020-12-20] MEDS: ENOXAPARIN SODIUM 40 MG/0.4 ML SYRINGE SUBCUT SCH (20:51)
[2020-12-21] MEDS: NACL 0.9% 1,000 ML IV SCH ×3 (00:14→20:38)
[2020-12-21 00:18] VITALS: BP_SYST 131
[2020-12-21 10:00] VITALS: BP_SYST 133
[2020-12-21] MEDS: GLIMEPIRIDE 2 MG TABLET PO SCH (10:01)
[2020-12-21] MEDS: amLODIPine BESYLATE 10 MG TABLET PO SCH (10:02)
[2020-12-21 11:30] VITALS: BP_SYST 136
[2020-12-21] MEDS: CEFEPIME 1 GM in D5W 50 ML IV SCH (11:52)
[2020-12-21 15:26] VITALS: BP_SYST 137
[2020-12-21 20:00] VITALS: BP_SYST 148
[2020-12-21] MEDS: INSULIN REGULAR, HUMAN 100 UNITS/ML, 10 ML VIAL (humuLIN R) SUBCUT PRN (20:41)
[2020-12-21] MEDS: ENOXAPARIN SODIUM 40 MG/0.4 ML SYRINGE SUBCUT SCH (20:42)
[2020-12-22] MEDS: NACL 0.9% 1,000 ML IV SCH ×2 (06:07→20:45)
[2020-12-22 07:50] VITALS: BP_SYST 133
[2020-12-22 08:21] VITALS: BP_SYST 133
[2020-12-22] MEDS: amLODIPine BESYLATE 10 MG TABLET PO SCH (09:10)
[2020-12-22] MEDS: GLIMEPIRIDE 2 MG TABLET PO SCH (09:11)
[2020-12-22] MEDS: CEFEPIME 1 GM in D5W 50 ML IV SCH (11:47)
[2020-12-22 12:00] VITALS: BP_SYST 127
[2020-12-22 12:09] LABS: BASOPHILS % (AUTO) 0.3 % (0.0-2.0); EOSINOPHILS # (AUTO) 0.3 K/uL (0.0-0.4); EOSINOPHILS % (AUTO) 3.6 % (0.0-4.0); HEMATOCRIT 35.2 % (36-54); HEMOGLOBIN 11.9 g/dL (14.0-18.0); LYMPHOCYTES % (AUTO) 22.2 % (20.5-51.5); MEAN CORPUSCULAR HEMOGLOBIN 29 pg (27-31); MEAN CORPUSCULAR HGB CONC 34 % (32-36); MEAN CORPUSCULAR VOLUME 84 fL (79.0-98.0); MONOCYTES # (AUTO) 0.8 K/uL (0.0-1.0); MONOCYTES % (AUTO) 8.8 % (1.7-9.3); NEUTROPHILS % (AUTO) 65.1 % (40.0-70.0); PLATELET COUNT (AUTO) 233 K/uL (130-430); RED BLOOD CELL COUNT(AUTO) 4.17 MIL/uL (4.2-6.2); RED CELL DISTRIBUTION WIDTH 14.2 % (9.0-15.0); WHITE BLOOD COUNT (AUTO) 9.1 K/uL (4.8-10.8)
[2020-12-22 13:12] LABS: ERYTHROCYTE SEDIMENTATION RATE 34 MM/HR (0-15)
[2020-12-22 15:34] VITALS: BP_SYST 124
[2020-12-22 20:00] VITALS: BP_SYST 133
[2020-12-22] MEDS: DOXYCYCLINE HYCLATE 100 MG CAPSULE PO SCH (21:55)
[2020-12-22] MEDS: ENOXAPARIN SODIUM 40 MG/0.4 ML SYRINGE SUBCUT SCH (21:57)
[2020-12-22] MEDS: INSULIN REGULAR, HUMAN 100 UNITS/ML, 10 ML VIAL (humuLIN R) SUBCUT PRN (21:58)
[2020-12-23] VITALS: BP_SYST 138
[2020-12-23] MEDS: NACL 0.9% 1,000 ML IV SCH ×2 (03:05→18:16)
[2020-12-23 07:55] VITALS: BP_SYST 141
[2020-12-23] MEDS: DOXYCYCLINE HYCLATE 100 MG CAPSULE PO SCH ×2 (09:33→20:46)
[2020-12-23] MEDS: amLODIPine BESYLATE 10 MG TABLET PO SCH (09:34)
[2020-12-23] MEDS: GLIMEPIRIDE 2 MG TABLET PO SCH (09:34)
[2020-12-23] MEDS: CEFEPIME 1 GM in D5W 50 ML IV SCH (11:48)
[2020-12-23 12:00] VITALS: BP_SYST 126
[2020-12-23 16:00] VITALS: BP_SYST 132
[2020-12-23 20:00] VITALS: BP_SYST 119
[2020-12-23] MEDS: ENOXAPARIN SODIUM 40 MG/0.4 ML SYRINGE SUBCUT SCH (20:49)
[2020-12-23] MEDS: INSULIN REGULAR, HUMAN 100 UNITS/ML, 10 ML VIAL (humuLIN R) SUBCUT PRN (21:35)
[2020-12-24] MEDS: NACL 0.9% 1,000 ML IV SCH ×3 (04:29→20:48)
[2020-12-24] MEDS: INSULIN REGULAR, HUMAN 100 UNITS/ML, 10 ML VIAL (humuLIN R) SUBCUT PRN ×2 (06:25→20:47)
[2020-12-24 08:00] VITALS: BP_SYST 147
[2020-12-24] MEDS: DOXYCYCLINE HYCLATE 100 MG CAPSULE PO SCH ×2 (09:28→20:48)
[2020-12-24] MEDS: amLODIPine BESYLATE 10 MG TABLET PO SCH (09:28)
[2020-12-24] MEDS: GLIMEPIRIDE 2 MG TABLET PO SCH (09:28)
[2020-12-24 11:41] VITALS: BP_SYST 127
[2020-12-24] MEDS: CEFEPIME 1 GM in D5W 50 ML IV SCH (12:42)
[2020-12-24 16:00] VITALS: BP_SYST 129
[2020-12-24 20:20] VITALS: BP_SYST 128
[2020-12-24] MEDS: ENOXAPARIN SODIUM 40 MG/0.4 ML SYRINGE SUBCUT SCH (20:47)
[2020-12-25 00:41] VITALS: BP_SYST 125
[2020-12-25] MEDS: INSULIN REGULAR, HUMAN 100 UNITS/ML, 10 ML VIAL (humuLIN R) SUBCUT PRN (06:26)
[2020-12-25 07:55] VITALS: BP_SYST 136
[2020-12-25] MEDS: DOXYCYCLINE HYCLATE 100 MG CAPSULE PO SCH (08:55)
[2020-12-25] MEDS: GLIMEPIRIDE 2 MG TABLET PO SCH (08:55)
[2020-12-25] MEDS: amLODIPine BESYLATE 10 MG TABLET PO SCH (08:55)
[2020-12-25 11:15] VITALS: BP_SYST 126
[2020-12-25 11:23] VITALS: BP_SYST 133
[2020-12-25] MEDS: CEFEPIME 1 GM in D5W 50 ML IV SCH (13:08)
[2020-12-25 13:14] VITALS: BP_SYST 133
[2020-12-25 15:12] VITALS: BP_SYST 126
== END 2020-12-25 18:42 | disposition home health service (06) | DRG 856 ==
LOC: SED 17:52 → SMU 19:21
PROVIDERS: ADMIT Family Medicine; ATTEND Family Medicine
PROC: 0HRMXK3 Replacement of Right Foot Skin with Nonautologous Tissue Substitute, Full Thickness, External Approach (ICD-10-PCS; 2020-12-04)
PROC: 0HBMXZZ Excision of Right Foot Skin, External Approach (ICD-10-PCS; principal; 2020-12-04 11:30)
PROC: 0JBQ0ZZ Excision of Right Foot Subcutaneous Tissue and Fascia, Open Approach (ICD-10-PCS; 2020-12-11)
PROC: 02HV33Z Insertion of Infusion Device into Superior Vena Cava, Percutaneous Approach (ICD-10-PCS; 2020-12-12)
PROC: B548ZZA Ultrasonography of Superior Vena Cava, Guidance (ICD-10-PCS; 2020-12-12)
PROC: 0JBQ0ZZ Excision of Right Foot Subcutaneous Tissue and Fascia, Open Approach (ICD-10-PCS; 2020-12-18)
PROC: 0HRMXK3 Replacement of Right Foot Skin with Nonautologous Tissue Substitute, Full Thickness, External Approach (ICD-10-PCS; 2020-12-18)
DX: T81.41XA Infection following a procedure, superficial incisional surgical site, initial encounter (principal); M72.6 Necrotizing fasciitis; M86.8X7 Other osteomyelitis, ankle and foot; E11.52 Type 2 diabetes mellitus with diabetic peripheral angiopathy with gangrene; I96 Gangrene, not elsewhere classified; N17.9 Acute kidney failure, unspecified; L03.115 Cellulitis of right lower limb; E11.69 Type 2 diabetes mellitus with other specified complication; Z20.822 Contact with and (suspected) exposure to COVID-19; D64.9 Anemia, unspecified; E11.22 Type 2 diabetes mellitus with diabetic chronic kidney disease; Y83.5 Amputation of limb(s) as the cause of abnormal reaction of the patient, or of later complication, without mention of misadventure at the time of the procedure; E66.9 Obesity, unspecified; I12.9 Hypertensive chronic kidney disease with stage 1 through stage 4 chronic kidney disease, or unspecified chronic kidney disease; N18.9 Chronic kidney disease, unspecified; Z89.411 Acquired absence of right great toe; Z89.429 Acquired absence of other toe(s), unspecified side; Z79.2 Long term (current) use of antibiotics; Z89.421 Acquired absence of other right toe(s); Z88.6 Allergy status to analgesic agent; Z68.29 Body mass index [BMI] 29.0-29.9, adult; Y92.89 Other specified places as the place of occurrence of the external cause
CPT/HCPCS: 36415; 71045; 80048; 80053; 81003; 82948; 82962; 83036; 83605; 85025; 85610-TC; 85651-TC; 85730-TC; 86140; 86886; 86900; 86901; 87040-TC; 87070; 87070-TC; 87075-TC; 87081; 88304; 88307; 93005; 94010; 94760; 97163; A6209; J0295; J0690; J0692; J1100; J1170; J1650; J1815; J1885; J2001; J2250; J2405; J2543; J2704; J2765; J3010; J3490; J7030; J7050; J7060; J7120

== ENCOUNTER 2021-02-02 12:49 | Day surgery (SDC) | payer BC, SELFPAY ==
[~2021-02-02] VITALS: Ht 182.9 cm; Wt 102.1 kg
[2021-02-02] MEDS ORDERED: NS IRRIG SOLN 1000 ML IR ONE (16:52)
[2021-02-02] MEDS ORDERED: LR 1,000 ML IV.SOLN IV ONE (16:52)
[2021-02-02] MEDS ORDERED: MIDAZOLAM HCL 5 MG/5 ML VIAL IVP ONE (16:52)
[2021-02-02] MEDS ORDERED: fentaNYL CITRATE/PF 100 MCG/2 ML AMP IVP ONE (16:52)
[2021-02-02] MEDS ORDERED: ONDANSETRON HCL 4 MG/2 ML VIAL IVP PRN (17:30)
[2021-02-02] MEDS ORDERED: MIDAZOLAM HCL 2 MG/2 ML VIAL (VERSED) IVP PRN (17:30)
[2021-02-02] MEDS ORDERED: MEPERIDINE HCL/PF 25 MG/ML DISP.SYRIN IVP PRN (17:30)
[2021-02-02] MEDS ORDERED: HYDROmorphone 1 INJ. 1 MG/ML CARTRIDGE IVP PRN ×2 (17:30)
[2021-02-02] MEDS ORDERED: LR 1,000 ML IV SCH (17:30)
[2021-02-02] MEDS ORDERED: ONDANSETRON HCL 4 MG/2 ML VIAL ONE (18:19)
[2021-02-02 19:06] VITALS: BP_SYST 137
[2021-02-02 19:59] VITALS: BP_SYST 139
== END 2021-02-02 20:30 | disposition home health service (06) ==
LOC: SDS 12:49 → SMU 17:17 → SDS 20:30
PROVIDERS: ATTEND Surgery
DX: M72.6 Necrotizing fasciitis (principal); L97.519 Non-pressure chronic ulcer of other part of right foot with unspecified severity; E66.9 Obesity, unspecified; E11.40 Type 2 diabetes mellitus with diabetic neuropathy, unspecified; Z79.899 Other long term (current) drug therapy
CPT/HCPCS: 11043; 36415; 82948; 82962; 87070 ×2; 87426; J2250; J2405; J3010; J3465; J7120; 87075-TC